=== PATIENT | male | born 1955 | race Caucasian/White ===

== ENCOUNTER → 2016-11-15 | Outpatient (CLI) | payer BC ==
[2016-11-15 07:21] LABS: Basophils # (A) 0.1 k/uL (0-0.2); Basophils % (A) 1 %; CH 30.8; CHCM 33.6; Eosinophils # (A) 0.3 k/uL (0-0.7); Eosinophils % (A) 2 %; HCT 44.7 % (39.0-53.0); HDW 2.31; Luc # (Auto) 0.31; Luc % (Auto) 3; Lymphocytes # (A) 1.8 k/uL (1.0-4.8); Lymphocytes % (A) 14 %; MCHC 33.7 g/dL (31.0-37.0); MCV 92.1 fL (80.0-100.0); Mean Platelet Volume 6.6; Monocytes # (A) 0.6 k/uL (0-1.0); Monocytes % (A) 5 %; Neutrophils # (A) 9.3 k/uL (1.3-7.7); Neutrophils % (A) 76 %; RBC 4.85 m/uL (4.30-5.90); WBC 12.4 k/uL (3.8-10.6); WBC (Perox) 12.95
[2016-11-15 07:27] LABS: Potassium 4.5 mmol/L (3.5-5.1)
== END | disposition home or self-care (01) ==
LOC: LABPAT 06:43
PROVIDERS: ATTEND Orthopaedic Surgery
DX: Z01.812 Encounter for preprocedural laboratory examination (principal)
CPT/HCPCS: 80051; 85025

== ENCOUNTER 2016-11-16 06:55 | Day surgery (SDC) | payer BC ==
[2016-11-14 08:20] VITALS: BMI 23.7
--- NOTE | 2016-11-15 11:05 | HP ---
DATE OF ADMISSION: CHIEF COMPLAINT: Left anterior knee pain. HISTORY OF PRESENT ILLNESS: The patient is a 61-year-old vargas who presents with persistent left knee anterior pain for the past several months. He had a previous injury. He did have an aspiration of his prepatellar bursitis with persistence of symptoms. He has a difficult time with kneeling and squatting. It bothers him daily. He denies fevers or chills. He is taking anti-inflammatories with some relief. PAST MEDICAL HISTORY: Negative. PAST SURGICAL HISTORY: Significant for bilateral knee arthroscopy, hernia repair and sinus surgery. CURRENT MEDICATIONS: 1. Motrin. 2. Tylenol with Codeine. He denies drug allergies. FAMILY HISTORY: Significant for cancer. SOCIAL HISTORY: Significant for 1 pack per day tobacco use and social alcohol use. A 16-point review of systems otherwise reviewed and is noncontributory. On examination, the patient is approximately 6 foot tall, 175 pounds of mesomorphic habitus. HEENT exam is nonfocal. Neck is supple. He is nontender about the lumbar spine. He has painless passive motion of the left hip. Active motion left knee -6 to 140 degrees of flexion. He does have prepatellar tenderness with some mild swelling. He has palpable bursal thickening. He is tender about the medial joint line. Collaterals are stable, Saud is negative, John's is negative. There is no warmth or erythema about the anterior aspect of the left knee. IMPRESSION: Left knee prepatellar bursitis - posttraumatic. RECOMMENDATIONS: I talked to the patient at length regarding his treatment options. At this point he is quite symptomatic and wants to proceed with surgery. We will plan to proceed with open prepatellar bursectomy of the left knee. Risks and benefits are discussed at length in layman's terms. We will likely perform that as an outpatient procedure.
[~2016-11-16 06:55] MED LIST: DEXAMETHASONE SOD PHOSPHATE 10 MG/ML 1 ML VIAL IV ONE; LACTATED RINGERS 1,000 ML IV SCH; ONDANSETRON 4 MG/2 ML VIAL IVP ONE; ceFAZolin 2 GM in SODIUM CHLORIDE 0.9% 100 ML IVPB ONE
[2016-11-16] MEDS ORDERED: LIDOCAINE 1% 20 ML VIAL (10MG/ML) FOR IV START INTRADERMA ONE (07:25)
[2016-11-16] MEDS ORDERED: LIDOCAINE 1% INJ 10MG/ML (20 ML MDV) ONE (08:04)
[2016-11-16] MEDS ORDERED: SUCCINYLCHOLINE CHLORIDE 100 MG/5 ML SYR IV ONE (08:04)
[2016-11-16] MEDS ORDERED: fentaNYL (PF) 50 MCG/ML 2 ML AMP ONE (08:04)
[2016-11-16] MEDS ORDERED: PROPOFOL 10 MG/ML 20 ML VIAL IV ONE (08:04)
[2016-11-16] MEDS ORDERED: MIDAZOLAM 2 MG/2 ML VIAL ONE (08:04)
[2016-11-16] MEDS ORDERED: ceFAZolin 1,000 MG in SODIUM CHLORIDE 0.9% 1,000 ML IRRIGATION ONE (08:30)
--- NOTE | 2016-11-16 08:48 | P.OP ---
Date of Procedure: 11/16/16 Preoperative Diagnosis: Left knee symptomatic prepatellar bursitis Postoperative Diagnosis: Same Procedure(s) Performed: Open bursectomy left knee Implants: Anesthesia: GETA Surgeon: Ramez Bhardwaj Sales Representative Graphic Art #1: Jose Padilla Estimated Blood Loss (ml): 10 Pathology: other (Bursal tissue) Condition: stable Disposition: PACU Indications for Procedure: The patient's a 61-year-old male who presents after injuring his left knee recently. He developed a symptomatic prepatellar bursitis. We try conservative measures in addition to aspiration with recurrence of his symptoms. He had no evidence of active infection. A discussion of the risks and benefits of operative intervention versus continued conservative measures was made with patient. He opted to proceed with surgery. Operative risks to include infection, recurrence, possible need for subsequent procedures was discussed. Informed consent was obtained. Operative Findings: Significant bursitis Description of Procedure: The patient was brought to the operating room, and after induction of general anesthesia the left lower extremity was prepped and draped in normal fashion. The tourniquet was inflated to 270 mmHg. A 3 cm incision was made along the anterior aspect of the left knee. The skin was incised sharply. Subcu tissues were divided sharply. There was significant bursal thickening along with fluid. The bursal tissue was widely resected. This was sent for pathology. The wound was then copiously irrigated. The subcutaneous tissues reapproximated interrupted 2-0 Vicryl sutures. The skin was reapproximated with 3-0 subcuticular Prolene suture. Steri-Strips were applied. A sterile dressing was applied. The tourniquet was deflated less than 30 minutes total tourniquet time. The patient was awoken from general anesthesia and transferred to recovery room in good condition. Blood loss was estimated at 10 mL. No complications were incurred. Sponge and needle counts were correct in the case.
[2016-11-16 08:51] VITALS: TEMP 97.8
[2016-11-16] MEDS: HYDROmorphone 1 MG/ML 1 ML SYRINGE IVP PRN ×2 (08:57→09:08)
[2016-11-16 09:17] VITALS: RESP 16
[2016-11-16] MEDS ORDERED: LACTATED RINGERS 1,000 ML IV ONE (09:41)
[2016-11-16] MEDS ORDERED: traMADol 50 MG TAB PO ONE (09:44)
[2016-11-16 09:59] VITALS: BP 148/81; PULSE 59
== END 2016-11-16 10:27 | disposition home or self-care (01) ==
LOC: OR 06:55
PROVIDERS: ATTEND Orthopaedic Surgery
DX: M70.42 Prepatellar bursitis, left knee (principal); K21.9 Gastro-esophageal reflux disease without esophagitis; F17.200 Nicotine dependence, unspecified, uncomplicated; M79.89 Other specified soft tissue disorders; Z79.1 Long term (current) use of non-steroidal anti-inflammatories (NSAID); Z79.82 Long term (current) use of aspirin; Z79.891 Long term (current) use of opiate analgesic; Z79.899 Other long term (current) drug therapy
CPT/HCPCS: 88304; 27340; J2250; J1100; J0690 ×2; J2405; J2001; J3010; J1170; J0330; J2704; 88305

== ENCOUNTER 2017-12-04 11:26 | Emergency (ER) | payer BC ==
[2017-12-04] MEDS ORDERED: SODIUM CHLORIDE 0.9% 1,000 ML IV STA (11:48)
--- NOTE | 2017-12-04 11:52 | ED ---
General Adult HPI - General Chief complaint: Shortness of Breath Stated complaint: Dyspnea Time Seen by Provider: 12/04/17 11:42 Source: patient, family, RN notes reviewed Mode of arrival: wheelchair Limitations: no limitations - History of Present Illness Initial comments: Patient is a pleasant 62-year-old male presenting to the emergency department with dyspnea. Patient has had sore throat for several months. Patient did discontinue smoking around that time. Patient states he feels discomfort and fullness in his lower throat. Patient states he feels like his shortness of breath is coming from that area. Patient may have had minimal symptoms with dyspnea previously however more so today. Patient has had difficulty swallowing. Patient states solid foods are worse than liquids. Patient did try antibiotics without improvement of symptoms. Patient is scheduled to see ENT and have scope done. Patient has not been sleeping well. - Related Data Previous Rx's Medication Instructions Recorded Azithromycin [Zithromax Z-pack] 250 mg PO DIRECTED #6 tab 12/04/17 Allergies Allergy/AdvReac Type Severity Reaction Status Date / Time Fish Containing Products Allergy Anaphylaxis Verified 12/04/17 13:11 [Fish] Review of Systems ROS Statement: Those systems with pertinent positive or pertinent negative responses have been documented in the HPI. ROS Other: All systems not noted in ROS Statement are negative. Constitutional: Denies: fever Eyes: Denies: eye pain ENT: Reports: throat pain Respiratory: Reports: dyspnea. Denies: cough Cardiovascular: Denies: chest pain Endocrine: Reports: fatigue Gastrointestinal: Reports: constipation Genitourinary: Denies: dysuria Musculoskeletal: Denies: back pain Skin: Denies: lesions Neurological: Denies: headache Past Medical History Past Medical History: GERD/Reflux, Osteoarthritis (OA) Additional Past Medical History / Comment(s): occ use of knee brace History of Any Multi-Drug Resistant Organisms: None Reported Past Surgical History: Adenoidectomy, Hernia Repair, Orthopedic Surgery, Tonsillectomy Additional Past Surgical History / Comment(s): RIGHT KNEE arthroscopy, albina foot bunionectomy and spurs, sinus surgery Past Anesthesia/Blood Transfusion Reactions: No Reported Reaction Past Psychological History: No Psychological Hx Reported Smoking Status: Current every day smoker - Past Family History Mother Family Medical History: No Reported History Father Family Medical History: Cancer General Exam Limitations: no limitations General appearance: alert, in no apparent distress Head exam: Present: atraumatic Eye exam: Present: normal appearance, PERRL, EOMI. Absent: nystagmus ENT exam: Present: normal oropharynx Neck exam: Present: normal inspection. Absent: tenderness, lymphadenopathy, thyromegaly Respiratory exam: Present: normal lung sounds bilaterally. Absent: respiratory distress, wheezes, rales, rhonchi, stridor, chest wall tenderness, accessory muscle use, decreased breath sounds Cardiovascular Exam: Present: regular rate, normal rhythm GI/Abdominal exam: Present: soft. Absent: tenderness Extremities exam: Present: normal inspection. Absent: pedal edema, calf tenderness Neurological exam: Present: alert, CN II-XII intact. Absent: motor sensory deficit Expanded Neurological exam: Present: protecting the airway Speech: Present: fluid speech Cranial nerves: EOM's Intact: Normal, Facial Sensation: Normal Sensory exam: Upper Extremity Light Touch: Normal, Lower Extremity Light Touch: Normal Motor strength exam: RUE: 5, LUE: 5, RLE: 5, LLE: 5 Eye Response: (4) open spontaneously Motor Response: (6) obeys commands Verbal Response: (5) oriented Psychiatric exam: Present: normal affect, normal mood Skin exam: Present: normal color Course Vital Signs 12/04/17 12/04/17 11:30 12:00 Temperature 97.7 F Pulse Rate 60 73 Respiratory 18 16 Rate Blood Pressure 164/88 179/73 O2 Sat by Pulse 100 98 Oximetry EKG Findings - EKG Comments: EKG Findings:: Sinus bradycardia 59. WI 150. QRS 90. QT 408. QTC 43. Normal axis. Normal QRS. No acute ST change. Medical Decision Making - Medical Decision Making Patient reevaluated and resting comfortably in bed. Patient and family updated on results and need for follow-up. Patient does have scheduled appointment Saturday for scope by ENT to assess airway. Airway is stable at this time. Patient also has follow-up appointment with primary care physician next week. There are advised to keep appointments, tried to arrange sooner possible. They are made aware of primary care physicians need to review old documentation including computed tomography scan from today and have further assessment. Patient will be covered with antibiotics for possible pneumonitis. Patient was recently on Augmentin and therefore we placed on azithromycin at this time. - Lab Data Result diagrams: 12/04/17 12:05 12/04/17 12:05 Lab Results 12/04/17 12/04/17 12/04/17 Range/Units 12:05 12:05 12:05 WBC 9.4 (3.8-10.6) k/uL RBC 4.68 (4.30-5.90) m/uL Hgb 14.0 (13.0-17.5) gm/dL Hct 42.0 (39.0-53.0) % MCV 89.7 (80.0-100.0) fL MCH 29.9 (25.0-35.0) pg MCHC 33.3 (31.0-37.0) g/dL RDW 13.2 (11.5-15.5) % Plt Count 270 (150-450) k/uL Neutrophils % 73 % Lymphocytes % 18 % Monocytes % 6 % Eosinophils % 2 % Basophils % 1 % Neutrophils # 6.8 (1.3-7.7) k/uL Lymphocytes # 1.7 (1.0-4.8) k/uL Monocytes # 0.5 (0-1.0) k/uL Eosinophils # 0.2 (0-0.7) k/uL Basophils # 0.0 (0-0.2) k/uL PT (9.0-12.0) sec INR (<1.2) APTT (22.0-30.0) sec Sodium 138 (137-145) mmol/L Potassium 4.4 (3.5-5.1) mmol/L Chloride 102 (98-107) mmol/L Carbon Dioxide 27 (22-30) mmol/L Anion Gap 9 mmol/L BUN 11 (9-20) mg/dL Creatinine 0.70 (0.66-1.25) mg/dL Est GFR (CKD-EPI)AfAm >90 (>60 ml/min/1.73 sqM) Est GFR (CKD-EPI)NonAf >90 (>60 ml/min/1.73 sqM) Glucose 92 (74-99) mg/dL Calcium 9.7 (8.4-10.2) mg/dL Magnesium 1.9 (1.6-2.3) mg/dL Total Bilirubin 0.5 (0.2-1.3) mg/dL AST 23 (17-59) U/L ALT 40 (21-72) U/L Alkaline Phosphatase 84 (38-126) U/L Total Creatine Kinase 57 (55-170) U/L CK-MB (CK-2) 1.4 (0.0-2.4) ng/mL CK-MB (CK-2) Rel Index 2.5 Troponin I <0.012 (0.000-0.034) ng/mL NT-Pro-B Natriuret Pep pg/mL Total Protein 6.7 (6.3-8.2) g/dL Albumin 4.3 (3.5-5.0) g/dL 12/04/17 12/04/17 Range/Units 12:05 12:05 WBC (3.8-10.6) k/uL RBC (4.30-5.90) m/uL Hgb (13.0-17.5) gm/dL Hct (39.0-53.0) % MCV (80.0-100.0) fL MCH (25.0-35.0) pg MCHC (31.0-37.0) g/dL RDW (11.5-15.5) % Plt Count (150-450) k/uL Neutrophils % % Lymphocytes % % Monocytes % % Eosinophils % % Basophils % % Neutrophils # (1.3-7.7) k/uL Lymphocytes # (1.0-4.8) k/uL Monocytes # (0-1.0) k/uL Eosinophils # (0-0.7) k/uL Basophils # (0-0.2) k/uL PT 9.4 (9.0-12.0) sec INR 0.9 (<1.2) APTT 22.7 (22.0-30.0) sec Sodium (137-145) mmol/L Potassium (3.5-5.1) mmol/L Chloride (98-107) mmol/L Carbon Dioxide (22-30) mmol/L Anion Gap mmol/L BUN (9-20) mg/dL Creatinine (0.66-1.25) mg/dL Est GFR (CKD-EPI)AfAm (>60 ml/min/1.73 sqM) Est GFR (CKD-EPI)NonAf (>60 ml/min/1.73 sqM) Glucose (74-99) mg/dL Calcium (8.4-10.2) mg/dL Magnesium (1.6-2.3) mg/dL Total Bilirubin (0.2-1.3) mg/dL AST (17-59) U/L ALT (21-72) U/L Alkaline Phosphatase (38-126) U/L Total Creatine Kinase (55-170) U/L CK-MB (CK-2) (0.0-2.4) ng/mL CK-MB (CK-2) Rel Index Troponin I (0.000-0.034) ng/mL NT-Pro-B Natriuret Pep 122 pg/mL Total Protein (6.3-8.2) g/dL Albumin (3.5-5.0) g/dL - Radiology Data Radiology results: report reviewed (CT scan of the chest is slightly suboptimal , no definite pulmonary embolism. 3 masses right costophrenic angle, likely cyst or lymphadenopathy. Possible interstitial pneumonitis. Hiatal hernia. Computed tomography scan of the neck shows mild tonsillar hypertrophy, mild thyromegaly, chronic ethmoid and mild chronic maxillary sinusitis.) Disposition Clinical Impression: Dyspnea Disposition: HOME SELF-CARE Condition: Stable Instructions: Dyspnea (ED) Additional Instructions: Please follow-up with primary care physician in the next day or 2 for recheck. Please also follow-up with ENT and have scope done. Return for difficulty breathing, not tolerating fluids, fevers, worsening or changing symptoms or other concerns. Prescriptions: Azithromycin [Zithromax Z-pack] 250 mg PO DIRECTED #6 tab Is patient prescribed a controlled substance at d/c from ED?: No Referrals: Sophia Bentley MD [Primary Care Provider] - 1-2 days Time of Disposition: 14:00
[2017-12-04 12:01] VITALS: RESP 16
[2017-12-04 12:20] LABS: Basophils % (A) 1 %; Eosinophils # (A) 0.2 k/uL (0-0.7); Eosinophils % (A) 2 %; Lymphocytes # (A) 1.7 k/uL (1.0-4.8); Lymphocytes % (A) 18 %; MCH 29.9 pg (25.0-35.0); MCHC 33.3 g/dL (31.0-37.0); MCV 89.7 fL (80.0-100.0); Mean Platelet Volume 7.1; Monocytes # (A) 0.5 k/uL (0-1.0); Monocytes % (A) 6 %; Neutrophils # (A) 6.8 k/uL (1.3-7.7); Neutrophils % (A) 73 %; Platelet Count 270 k/uL (150-450); RBC 4.68 m/uL (4.30-5.90); RDW 13.2 % (11.5-15.5); WBC 9.4 k/uL (3.8-10.6)
[2017-12-04 12:27] LABS: ALT 40 U/L (21-72); AST 23 U/L (17-59); Albumin 4.3 g/dL (3.5-5.0); Alkaline Phosphatase 84 U/L (38-126); Anion Gap 9 mmol/L; Blood Urea Nitrogen 11 mg/dL (9-20); Calcium 9.7 mg/dL (8.4-10.2); Carbon Dioxide 27 mmol/L (22-30); Chloride 102 mmol/L (98-107); Glucose 92 mg/dL (74-99); Magnesium 1.9 mg/dL (1.6-2.3); Potassium 4.4 mmol/L (3.5-5.1); Sodium 138 mmol/L (137-145); Total Bilirubin 0.5 mg/dL (0.2-1.3); Total Protein 6.7 g/dL (6.3-8.2)
[2017-12-04 12:35] LABS: Creatine Kinase 57 U/L (55-170)
[2017-12-04 12:46] LABS: INR 0.9 (<1.2); Partial Thromboplastin Time 22.7 sec (22.0-30.0); Prothrombin Time 9.4 sec (9.0-12.0)
[2017-12-04 12:48] LABS: Creatine Kinase MB 1.4 ng/mL (0.0-2.4); Troponin I <0.012 ng/mL (0.000-0.034)
--- NOTE | 2017-12-04 13:28 | CT ---
EXAMINATION TYPE: CT angio chest DATE OF EXAM: 12/04/2017 COMPARISON: NONE HISTORY: 62-year-old male shortness of breath, cough, Lightheaded/SOB, dyspnea TECHNIQUE: Contiguous axial scanning of the chest performed with IV Contrast, patient injected with 5 0 mL of Isovue 370. Coronal/sagittal MIP reconstructions performed. CT DLP: 714.59 mGycm Automated exposure control for dose reduction was used. FINDINGS: Heart upper limits of normal in size. Coronary vessel calcifications are present and are a marker for coronary disease. There are normal caliber with conventional arch vessel branching anatomy and mild apical scarring artemio cifications. Scattered nonenlarged mediastinal lymph nodes measuring up to 9 mm in the paratracheal region. No tho racic lymphadenopathy by CT size criteria. However, there are 3 low-density masses in the right cardi ophrenic angle measuring 2.1, 2.8, at 2.7 cm. These are ovoid and circumscribed. Slightly suboptimal opacification of the pulmonary arterial system without any definite evidence for pulmonary embolus. Mild bronchial wall thickening. Mild upper lung paraseptal emphysema. Some subpleural microcystic [place] nges are present especially in the posterior lower lobes along with associated bibasilar groundglass. No pleural effusion or shaka consolidation. Small hiatal hernia. Visualized upper abdomen shows no gross abnormality. Bones: Multilevel degenerative disc disease mid to lower thoracic spine with scattered vacuum phenome non and endplate Schmorl's nodes. IMPRESSION: 1. SLIGHTLY SUBOPTIMAL CONTRAST BOLUS. NO DEFINITE PULMONARY EMBOLUS. 2. THREE LOW-DENSITY MASSES AT THE RIGHT CARDIOPHRENIC ANGLE MEASURING UP TO 2.8 CM. LYMPHADENOPATHY AND PERICARDIAL CYSTS ARE IN THE DIFFERENTIAL WITH THE LATTER BEING FAVORED. CONSIDER CONTRAST ENHANC ED MRI OF THE CHEST TO FURTHER EVALUATE VERSUS 3 - 6 MONTH FOLLOW-UP CT TO REASSESS. 3. MILD PARASEPTAL EMPHYSEMA BUT WITH BIBASILAR SUBPLEURAL MICROCYSTIC CHANGE AND ASSOCIATED GROUNDGL ASS. CORRELATE FOR POSSIBLE INTERSTITIAL PNEUMONITIS SUCH DIP OR NSIP. 4. SMALL HIATAL HERNIA.
--- NOTE | 2017-12-04 13:34 | CT ---
EXAMINATION TYPE: CT soft tissue neck w con DATE OF EXAM: 12/04/2017 COMPARISON: NONE HISTORY: 62-year-old male, pain Lightheaded/SOB, dyspnea, smoking history, trouble clearing throat, c ough. TECHNIQUE: Contiguous axial scanning of the soft tissues of the neck performed with IV Contrast, manfred ent injected with 50 mL of Isovue 370. Coronal/sagittal reconstructions performed. CT DLP: 608.02 mGycm Automated exposure control for dose reduction was used. FINDINGS: Visualized intracranial structures, orbits and globes, and mastoid air cells are clear. Minor mucosal thickening within the ethmoid air cells and some lobulated mucosal thickening inferior maxillary sin uses. Nasopharynx is clear. There is bilateral tubal and lingual tonsillar hypertrophy narrowing the oropharyngeal airway. Mild l ingual tonsillar hypertrophy. Prevertebral soft tissues and epiglottis appear within normal limits. The glottic and subglottic structures as well as the tracheal column appear clear. While the lobes of the thyroid gland appears enlarged measuring up to 6.3 cm, there are no discrete l esions. Submandibular glands appear satisfactory. Mild atrophy of the parotid glands. No cervical lymphadenopathy. Mild atherosclerotic calcifications within the proximal right internal carotid artery without signifi cant stenosis. No osseous destructive process. IMPRESSION: 1. MILD TUBAL AND PALATINE TONSILLAR HYPERTROPHY WELL MILD HYPERTROPHY OF THE LINGUAL TONSILS. 2. MILD THYROMEGALY. 3. MODERATE CHRONIC ETHMOID AND MILD CHRONIC MAXILLARY SINUSITIS.
[2017-12-04 14:13] VITALS: BP 161/82; PULSE 74; TEMP 98
== END 2017-12-04 14:11 | disposition home or self-care (01) ==
LOC: EC 11:26
DX: R06.00 Dyspnea, unspecified (principal); R13.10 Dysphagia, unspecified; J02.9 Acute pharyngitis, unspecified; F17.200 Nicotine dependence, unspecified, uncomplicated; Z91.013 Allergy to seafood
CPT/HCPCS: 36415; 93005; 83880; 80053; 82550; 82553; 83735; 84484; 85025; 85610; 85730; 70491; 71275; 99285; Q9967

== ENCOUNTER 2018-09-30 11:29 | Day surgery (SDC) | payer BC ==
[2018-09-29 09:08] VITALS: BMI 25.0
[~2018-09-30 11:29] MED LIST changes: -DEXAMETHASONE SOD PHOSPHATE 10 MG/ML 1 ML VIAL IV ONE; -ONDANSETRON 4 MG/2 ML VIAL IVP ONE; -ceFAZolin 2 GM in SODIUM CHLORIDE 0.9% 100 ML IVPB ONE
[2018-09-30] MEDS ORDERED: LACTATED RINGERS 1,000 ML IV ONE ×2 (11:58)
[2018-09-30 12:08] VITALS: TEMP 97.2
[2018-09-30] MEDS ORDERED: PROPOFOL 10 MG/ML 20 ML VIAL IV ONE (13:06)
[2018-09-30] MEDS ORDERED: LIDOCAINE 1% INJ 10MG/ML (20 ML MDV) ONE (13:06)
[2018-09-30 13:44] VITALS: RESP 18
--- NOTE | 2018-09-30 13:55 | P.PCN ---
Date of Procedure: 09/30/18 Procedure(s) Performed: Procedure: 1. Esophagogastroduodenoscopy and biopsy. 2. Colonoscopy and biopsy. Preoperative diagnosis: Gastroesophageal reflux disease and chronic reflux symptoms. Postoperative diagnosis: 1. Sliding hiatal hernia with no obvious esophagitis or complicated reflux disease. 2. Mild antral gastritis. 3. Sigmoid diverticulosis with no evidence of acute diverticulitis or strictures. 4. Colon and terminal ileum, otherwise, within normal limits. 4. Biopsies obtained from the duodenum, antrum, esophagus, terminal ileum and right colon. Preparation: HalfLytely prep. Sedation: Was provided by anesthesia. Brief clinical history: The patient is a 62-year-old male who was evaluated in the office earlier this month for diarrhea of one-year duration. He reported history of COPD and reflux and abdominal cramps with urgent bowel movements. He has been taking omeprazole for the last year. No dietary or medication triggers. Procedure: With the patient on his left lateral decubitus position and after informed consent and adequate sedation, I passed the Olympus-GIF H 190 video upper endoscope through the cricopharyngeus down the esophagus. GE junction was around 38 cm from the incisors and there was a small sliding hiatal hernia but no obvious esophagitis or complicated reflux disease. The endoscope was then passed into the stomach which was insufflated with air and inspected in detail including the retroflex view in the cardia. There was some mottling and erythe ma in the antrum but no ulcers or erosions. Pyloric channel, duodenal bulb, post bulbar area and descending duodenum appeared within normal limits. I obtained biopsies from the duodenum, antrum and esophagus then the endoscope was withdrawn and I proceeded to perform the colonoscopy. Perianal area did not show any fissures or fistulas. There were no masses felt on digital rectal examination. The Olympus CFH 190L video colonoscope was then inserted in the rectum in the usual fashion and advanced to the cecum. I intubated the ileocecal valve and examined the terminal ileum. Terminal ileum and colon appeared healthy. I obtained biopsies from the right colon and terminal ileum. Multiple diverticular orifices were seen scattered in the sigmoid with no evidence of acute diverticulitis or strictures. I retroflexed the endoscope in the rectum before the endoscope was withdrawn. The patient tolerated the procedure well. Plan: The patient was reassured. Will await biopsy results and make further plans. I will keep you updated on his progress.
[2018-09-30 14:16] VITALS: BP 150/92; PULSE 68
== END 2018-09-30 14:26 | disposition home or self-care (01) ==
LOC: ORWHC2ENDO 11:29
DX: K44.9 Diaphragmatic hernia without obstruction or gangrene (principal); K21.9 Gastro-esophageal reflux disease without esophagitis; K29.70 Gastritis, unspecified, without bleeding; M17.0 Bilateral primary osteoarthritis of knee; K57.30 Diverticulosis of large intestine without perforation or abscess without bleeding; J44.9 Chronic obstructive pulmonary disease, unspecified; Z91.018 Allergy to other foods; Z87.891 Personal history of nicotine dependence; Z79.51 Long term (current) use of inhaled steroids; Z79.899 Other long term (current) drug therapy; Z98.890 Other specified postprocedural states
CPT/HCPCS: 88305; 45380; 43239; J2001; J2704

== ENCOUNTER 2021-07-26 15:29 | Observation (INO) | payer BC, MEDICARE ==
--- NOTE | 2021-07-26 17:05 | XR ---
EXAMINATION TYPE: XR chest 2V DATE OF EXAM: 07/26/2021 4:45 PM COMPARISON:02/06/2016 TECHNIQUE: Frontal and lateral views of the chest. CLINICAL INDICATION:Male, 65 years old with history of shortness of breath ; FINDINGS: Lungs/Pleura: Low lung volumes are present. There is no evidence of pleural effusion, focal consolida tion, or pneumothorax. Pulmonary vascularity: Unremarkable. Heart/mediastinum: Cardiomediastinal silhouette is unremarkable. Musculoskeletal: No acute osseous pathology. IMPRESSION: Low lung volumes without acute cardiopulmonary disease/process.
[2021-07-26 18:32] LABS: Basophils # (A) 0.1 k/uL (0-0.2); Basophils % (A) 1 %; Eosinophils # (A) 0.1 k/uL (0-0.7); Eosinophils % (A) 2 %; HCT 38.3 % (39.0-53.0); HGB 12.9 gm/dL (13.0-17.5); Lymphocytes # (A) 1.5 k/uL (1.0-4.8); Lymphocytes % (A) 18 %; MCH 32.4 pg (25.0-35.0); MCHC 33.8 g/dL (31.0-37.0); MCV 95.9 fL (80.0-100.0); Mean Platelet Volume 7.2; Monocytes # (A) 0.6 k/uL (0-1.0); Monocytes % (A) 7 %; Neutrophils # (A) 5.6 k/uL (1.3-7.7); Neutrophils % (A) 69 %; Platelet Count 277 k/uL (150-450); RDW 12.8 % (11.5-15.5); WBC 8.1 k/uL (3.8-10.6)
[2021-07-26 18:44] LABS: Albumin 4.3 g/dL (3.5-5.0); Calcium 10.2 mg/dL (8.4-10.2); Total Bilirubin 0.4 mg/dL (0.2-1.3)
[2021-07-26 18:45] LABS: INR 0.9 (<1.2); Partial Thromboplastin Time 22.4 sec (22.0-30.0); Prothrombin Time 9.7 sec (9.0-12.0)
[2021-07-26 18:50] LABS: Potassium 6.1 mmol/L (3.5-5.1)
[2021-07-26 20:30] LABS: Potassium 4.6 mmol/L (3.5-5.1)
[2021-07-26] MEDS ORDERED: IPRATROPIUM-ALBUTEROL 3 ML NEB INHALATION STA (20:55)
[2021-07-26] MEDS ORDERED: methylPREDNISolone SOD SUCCI 125 MG/2 ML VIAL IV STA (20:55)
[2021-07-26] MEDS: SODIUM CHLORIDE 0.9% 1,000 ML IV SCH (21:36)
--- NOTE | 2021-07-26 22:04 | ED ---
SOB HPI - General Chief Complaint: Shortness of Breath Stated Complaint: low o2 Time Seen by Provider: 07/26/21 18:56 Source: patient Mode of arrival: ambulatory Limitations: no limitations - History of Present Illness Initial Comments: 65-year-old male with past medical history of COPD presents emergency Department with shortness of breath. He did see his primary care in office one week ago. Chest x-ray was performed. The diagnosed with pneumonia. He was placed on Lasix, potassium and doxycycline. He has been taking the medications as directed and went for his follow-up today. They did an ambulatory pulse ox test. He did fall to 83% without oxygen. They placed him on 2 L and ambulated him for which she fell to 85% when ambulatory. Because of his hypoxia they recommended going to the emergency department. He does not use oxygen at home. Denies any chest pain. Denies history of heart failure. No fevers, chills or cough. No lower extremity swelling. No other alleviating, precipitating or modifying factors - Related Data Home Medications Medication Instructions Recorded Confirmed Albuterol Sulfate [Proair Hfa] 2 puff INHALATION RT-Q6H PRN 09/29/18 07/26/21 Omeprazole [PriLOSEC] 20 mg PO DAILY 09/29/18 07/26/21 Amitriptyline HCl [Elavil] 25 mg PO HS 07/26/21 07/26/21 Dicyclomine HCl 10 mg PO TID 07/26/21 07/26/21 Losartan [Cozaar] 50 mg PO DAILY 07/26/21 07/26/21 Metoprolol Succinate (ER) [Toprol 50 mg PO BID 07/26/21 07/26/21 XL] Rosuvastatin [Crestor] 20 mg PO Q48H 07/26/21 07/26/21 Tiotropium 2.5 Mcg/Puff [Spiriva 1 puff INHALATION RT-DAILY 07/26/21 07/26/21 Respimat 2.5 Mcg] buPROPion SR [Wellbutrin SR] 150 mg PO BID 07/26/21 07/26/21 Previous Rx's Medication Instructions Recorded predniSONE 10 mg PO DIRECTED #30 tab 07/29/21 Allergies Allergy/AdvReac Type Severity Reaction Status Date / Time Fish Containing Products Allergy Anaphylaxis Verified 07/26/21 16:27 [Fish] budesonide [From Symbicort] AdvReac Sores in Verified 07/26/21 20:55 mouth formoterol [From Symbicort] AdvReac Sores in Verified 07/26/21 20:55 mouth Review of Systems ROS Statement: Those systems with pertinent positive or pertinent negative responses have been documented in the HPI. ROS Other: All systems not noted in ROS Statement are negative. Past Medical History Past Medical History: COPD, GERD/Reflux, Osteoarthritis (OA) Additional Past Medical History / Comment(s): change in bowel habits, frequent loose stools History of Any Multi-Drug Resistant Organisms: None Reported Past Surgical History: Adenoidectomy, Hernia Repair, Orthopedic Surgery, Tonsillectomy Additional Past Surgical History / Comment(s): RIGHT KNEE arthroscopy, albina foot bunionectomy and spurs, sinus surgery Past Anesthesia/Blood Transfusion Reactions: No Reported Reaction Past Psychological History: Anxiety Smoking Status: Former smoker Past Alcohol Use History: Daily Past Drug Use History: None Reported - Past Family History Mother Family Medical History: No Reported History Father Family Medical History: Cancer General Exam Limitations: no limitations General appearance: alert, in no apparent distress Head exam: Present: atraumatic, normocephalic, normal inspection Eye exam: Present: normal appearance, PERRL, EOMI. Absent: scleral icterus, conjunctival injection, periorbital swelling ENT exam: Present: normal exam, mucous membranes moist Neck exam: Present: normal inspection. Absent: tenderness, meningismus, lymphadenopathy Respiratory exam: Present: normal lung sounds bilaterally, decreased breath sounds. Absent: respiratory distress, wheezes, rales, rhonchi, stridor Cardiovascular Exam: Present: regular rate, normal rhythm, normal heart sounds. Absent: systolic murmur, diastolic murmur, rubs, gallop, clicks GI/Abdominal exam: Present: soft, normal bowel sounds. Absent: distended, tenderness, guarding, rebound, rigid Extremities exam: Present: normal inspection, full ROM, normal capillary refill. Absent: tenderness, pedal edema, joint swelling, calf tenderness Back exam: Present: normal inspection Neurological exam: Present: alert, oriented X3, CN II-XII intact Psychiatric exam: Present: normal affect, normal mood Skin exam: Present: warm, dry, intact, normal color. Absent: rash Course Vital Signs 07/26/21 07/26/21 07/26/21 16:22 21:30 21:36 Temperature 98.6 F Pulse Rate 72 70 73 Respiratory 18 Rate Blood Pressure 105/73 O2 Sat by Pulse 97 Oximetry 07/27/21 00:30 Temperature Pulse Rate 79 Respiratory 16 Rate Blood Pressure 146/92 O2 Sat by Pulse 94 L Oximetry Procedures - [place] Protocol (Time Out) Nurse: Osvaldo Haji Medical Decision Making - Medical Decision Making Upon arrival patient is placed into room 2. A thorough history and physical exam was performed. IV access established laboratory says her conducted. Patient does have a sodium of 123 and potassium 6.1. These are both repeated. Potassium does return and is normal at 4.6 however his sodium is still low at 122. Because of this he is started on fluid hydration. BNP is 326. Covid is not detected. Chest x-ray is performed which demonstrates low lung volumes with no acute cardio process. Patient given a DuoNeb breathing treatment and 125 of Solu-Medrol. As the patient was hypoxic I did recommend admission for pulmonology consultation for which she did agree to. Spoke with Dr. Eric who agreed to admit the patient. Patient remained in stable condition awaiting a bed on the floor - Lab Data Result diagrams: 07/27/21 05:30 07/29/21 07:57 Lab Results 07/26/21 07/26/21 07/26/21 Range/Units 18:03 18:03 18:03 WBC (3.8-10.6) k/uL RBC (4.30-5.90) m/uL Hgb (13.0-17.5) gm/dL Hct (39.0-53.0) % MCV (80.0-100.0) fL MCH (25.0-35.0) pg MCHC (31.0-37.0) g/dL RDW (11.5-15.5) % Plt Count (150-450) k/uL MPV Neutrophils % % Lymphocytes % % Monocytes % % Eosinophils % % Basophils % % Neutrophils # (1.3-7.7) k/uL Lymphocytes # (1.0-4.8) k/uL Monocytes # (0-1.0) k/uL Eosinophils # (0-0.7) k/uL Basophils # (0-0.2) k/uL PT 9.7 (9.0-12.0) sec INR 0.9 (<1.2) APTT 22.4 (22.0-30.0) sec Sodium 123 L (137-145) mmol/L Potassium 6.1 H* (3.5-5.1) mmol/L Chloride 89 L (98-107) mmol/L Carbon Dioxide 27 (22-30) mmol/L Anion Gap 7 mmol/L BUN 18 (9-20) mg/dL Creatinine 1.17 (0.66-1.25) mg/dL Est GFR (CKD-EPI)AfAm 76 (>60 ml/min/1.73 sqM) Est GFR (CKD-EPI)NonAf 66 (>60 ml/min/1.73 sqM) Glucose 99 (74-99) mg/dL Plasma Lactic Acid Fadi 1.5 (0.7-2.0) mmol/L Calcium 10.2 (8.4-10.2) mg/dL Total Bilirubin 0.4 (0.2-1.3) mg/dL AST 32 (17-59) U/L ALT 36 (4-49) U/L Alkaline Phosphatase 96 (38-126) U/L Troponin I (0.000-0.034) ng/mL NT-Pro-B Natriuret Pep pg/mL Total Protein 7.0 (6.3-8.2) g/dL Albumin 4.3 (3.5-5.0) g/dL Coronavirus (PCR) (Not Detectd) 07/26/21 07/26/21 07/26/21 Range/Units 18:03 18:03 18:07 WBC 8.1 (3.8-10.6) k/uL RBC 4.00 L (4.30-5.90) m/uL Hgb 12.9 L (13.0-17.5) gm/dL Hct 38.3 L (39.0-53.0) % MCV 95.9 (80.0-100.0) fL MCH 32.4 (25.0-35.0) pg MCHC 33.8 (31.0-37.0) g/dL RDW 12.8 (11.5-15.5) % Plt Count 277 (150-450) k/uL MPV 7.2 Neutrophils % 69 % Lymphocytes % 18 % Monocytes % 7 % Eosinophils % 2 % Basophils % 1 % Neutrophils # 5.6 (1.3-7.7) k/uL Lymphocytes # 1.5 (1.0-4.8) k/uL Monocytes # 0.6 (0-1.0) k/uL Eosinophils # 0.1 (0-0.7) k/uL Basophils # 0.1 (0-0.2) k/uL PT (9.0-12.0) sec INR (<1.2) APTT (22.0-30.0) sec Sodium (137-145) mmol/L Potassium (3.5-5.1) mmol/L Chloride (98-107) mmol/L Carbon Dioxide (22-30) mmol/L Anion Gap mmol/L BUN (9-20) mg/dL Creatinine (0.66-1.25) mg/dL Est GFR (CKD-EPI)AfAm (>60 ml/min/1.73 sqM) Est GFR (CKD-EPI)NonAf (>60 ml/min/1.73 sqM) Glucose (74-99) mg/dL Plasma Lactic Acid Fadi (0.7-2.0) mmol/L Calcium (8.4-10.2) mg/dL Total Bilirubin (0.2-1.3) mg/dL AST (17-59) U/L ALT (4-49) U/L Alkaline Phosphatase (38-126) U/L Troponin I <0.012 (0.000-0.034) ng/mL NT-Pro-B Natriuret Pep 326 pg/mL Total Protein (6.3-8.2) g/dL Albumin (3.5-5.0) g/dL Coronavirus (PCR) (Not Detectd) 07/26/21 07/26/21 Range/Units 20:06 20:06 WBC (3.8-10.6) k/uL RBC (4.30-5.90) m/uL Hgb (13.0-17.5) gm/dL Hct (39.0-53.0) % MCV (80.0-100.0) fL MCH (25.0-35.0) pg MCHC (31.0-37.0) g/dL RDW (11.5-15.5) % Plt Count (150-450) k/uL MPV Neutrophils % % Lymphocytes % % Monocytes % % Eosinophils % % Basophils % % Neutrophils # (1.3-7.7) k/uL Lymphocytes # (1.0-4.8) k/uL Monocytes # (0-1.0) k/uL Eosinophils # (0-0.7) k/uL Basophils # (0-0.2) k/uL PT (9.0-12.0) sec INR (<1.2) APTT (22.0-30.0) sec Sodium 122 L (137-145) mmol/L Potassium 4.6 (3.5-5.1) mmol/L Chloride (98-107) mmol/L Carbon Dioxide (22-30) mmol/L Anion Gap mmol/L BUN (9-20) mg/dL Creatinine (0.66-1.25) mg/dL Est GFR (CKD-EPI)AfAm (>60 ml/min/1.73 sqM) Est GFR (CKD-EPI)NonAf (>60 ml/min/1.73 sqM) Glucose (74-99) mg/dL Plasma Lactic Acid Fadi (0.7-2.0) mmol/L Calcium (8.4-10.2) mg/dL Total Bilirubin (0.2-1.3) mg/dL AST (17-59) U/L ALT (4-49) U/L Alkaline Phosphatase (38-126) U/L Troponin I (0.000-0.034) ng/mL NT-Pro-B Natriuret Pep pg/mL Total Protein (6.3-8.2) g/dL Albumin (3.5-5.0) g/dL Coronavirus (PCR) Not Detected (Not Detectd) - EKG Data EKG Comments: EKG demonstrates a sinus rhythm with a ventricular rate of 64. PA interval 178. QRS 93. CT of 386. No acute ST segment elevations or depressions concerning for ischemic changes Disposition Clinical Impression: Hypoxia, COPD exacerbation, Hyponatremia Disposition: ADMITTED IP TO THIS [facility] Condition: Stable Is patient prescribed a controlled substance at d/c from ED?: No Decision to Admit Reason: Admit from EC Decision Date: 07/26/21 Decision Time: 22:14
[2021-07-26] MEDS ORDERED: NALOXONE 0.4 MG/ML 1 ML VIAL IV PRN (22:14)
[2021-07-26] MEDS ORDERED: IPRATROPIUM-ALBUTEROL 3 ML NEB INHALATION PRN (22:16)
[2021-07-27] MEDS: methylPREDNISolone SOD SUCCI 40 MG/ML 1 ML VIAL IV SCH ×4 (01:24→23:36)
[2021-07-27] MEDS: SODIUM CHLORIDE 0.9% 1,000 ML IV SCH ×4 (03:34→23:39)
[2021-07-27 06:13] LABS: Basophils % (A) 0 %; Eosinophils % (A) 0 %; HCT 40.7 % (39.0-53.0); HGB 13.2 gm/dL (13.0-17.5); Lymphocytes # (A) 0.4 k/uL (1.0-4.8); Lymphocytes % (A) 7 %; MCH 31.5 pg (25.0-35.0); MCHC 32.6 g/dL (31.0-37.0); MCV 96.6 fL (80.0-100.0); Monocytes # (A) 0.1 k/uL (0-1.0); Monocytes % (A) 2 %; Neutrophils % (A) 90 %; Platelet Count 258 k/uL (150-450); RBC 4.21 m/uL (4.30-5.90); RDW 13.4 % (11.5-15.5); WBC 5.5 k/uL (3.8-10.6)
[2021-07-27 06:25] LABS: African American GFR (CKD) >90 (>60 ml/min/1.73 sqM); Anion Gap 5 mmol/L; Blood Urea Nitrogen 14 mg/dL (9-20); Calcium 9.7 mg/dL (8.4-10.2); Carbon Dioxide 25 mmol/L (22-30); Chloride 95 mmol/L (98-107); Glucose 169 mg/dL (74-99); Non-African American GFR(CKD) >90 (>60 ml/min/1.73 sqM); Potassium 4.6 mmol/L (3.5-5.1); Sodium 125 mmol/L (137-145)
[2021-07-27] MEDS: METOPROLOL SUCCINATE (ER) 50 MG TAB.ER.24H PO SCH ×2 (07:30→20:51)
[2021-07-27] MEDS: LOSARTAN 50 MG TAB PO SCH (07:30)
[2021-07-27] MEDS: buPROPion SR 150 MG TABLET.ER PO SCH ×2 (08:13→20:51)
--- NOTE | 2021-07-27 10:01 | P.CNPUL ---
History of Present Illness Consult date: 07/27/21 Requesting physician: Bashir Foutnain Reason for consult: dyspnea, COPD, hypoxemia Chief complaint: Shortness of breath History of present illness: This is a pleasant 65-year-old male patient who follows with Dr. Bentley as his primary care provider. He has a history of hyperlipidemia, hypertension, gastroesophageal reflux disease, chronic obstructive pulmonary disease maintained on Spiriva and pro-air in the outpatient setting. He had been seen in our office and his FEV1 value was found to be 63% of predicted. The patient has a 45 year 1-1/2 pack per day smoking history and states he quit about 4 weeks ago. He also was having issues with swelling of the lower extremities and was recently placed on Lasix 40 mg in the a.m. 20 g in the p.m. He was also on potassium supplements. He states he has lost about 4 pounds. He was at his primary care provider's office yesterday and his O2 sats were found to be in the 80s during a 6 minute walk. He was referred here for further evaluation. Chest x-ray reveals evidence of COPD but no acute cardiopulmonary process. White count 5.5. Hemoglobin 13.2. Sodium 125. Initial potassium 6.1 currently 4.6. BUN 14. Creatinine 0.81. Glucose 169. Troponin negative 1. ProBNP 326. AST 32. ALT 36. Colmenares virus by PCR not detected. He is seen today in consultation on the regular medical floor. He is currently sitting up in bed. Awake and alert in no acute distress. He denies any worsening shortness of breath, cough or congestion. No fever or chills. He does have a mild end expiratory wheeze. Diminished. No significant peripheral edema. No dizziness or lightheadedness. He is 98% O2 saturation on 2 L/m per nasal cannula. He's been afebrile. Hemodynamically stable. He was initiated on IV Solu-Medrol, DuoNeb inhalations, 0.9% normal saline at 130 ML's per hour. Review of Systems REVIEW OF SYSTEMS: CONSTITUTIONAL: Denies any recent significant weight loss or weight gain. EYES: Denies change in vision. EARS, NOSE, MOUTH, THROAT: Denies headaches, denies sore throat. CARDIOVASCULAR: Denies chest pain, palpitations or syncopal episodes. RESPIRATORY: Positive for shortness of breath on exertion, no cough, congestion or hemoptysis. GASTROINTESTINAL: Denies change in appetite, denies abdominal pain GENITOURINARY: Denies hematuria, denies infections. MUSKULOSKELETAL: Denies pain, denies swelling. INTEGUMENTARY: Denies rash, denies eczema. NEUROLOGICAL: Denies recent memory loss, no recent seizure activity. PSYCHIATRIC: Denies anxiety, denies depression. HEMATOLOGIC/LYMPHATIC: Denies anemia, denies enlarged lymph nodes. Past Medical History Past Medical History: COPD, GERD/Reflux, Osteoarthritis (OA) Additional Past Medical History / Comment(s): change in bowel habits, frequent loose stools History of Any Multi-Drug Resistant Organisms: None Reported Past Surgical History: Adenoidectomy, Hernia Repair, Orthopedic Surgery, Tonsillectomy Additional Past Surgical History / Comment(s): RIGHT KNEE arthroscopy, albina foot bunionectomy and spurs, sinus surgery Past Anesthesia/Blood Transfusion Reactions: No Reported Reaction Past Psychological History: Anxiety Smoking Status: Former smoker Past Alcohol Use History: Daily Past Drug Use History: None Reported - Past Family History Mother Family Medical History: No Reported History Father Family Medical History: Cancer Medications and Allergies Home Medications Medication Instructions Recorded Confirmed Type Albuterol Sulfate [Proair Hfa] 2 puff INHALATION RT-Q6H PRN 09/29/18 07/26/21 History Omeprazole [PriLOSEC] 20 mg PO DAILY 09/29/18 07/26/21 History Amitriptyline HCl [Elavil] 25 mg PO HS 07/26/21 07/26/21 History Dicyclomine HCl 10 mg PO TID 07/26/21 07/26/21 History Furosemide [Lasix] 20 mg PO DAILY 07/26/21 07/26/21 History Losartan [Cozaar] 50 mg PO DAILY 07/26/21 07/26/21 History Metoprolol Succinate (ER) [Toprol 50 mg PO BID 07/26/21 07/26/21 History Xl] Potassium Chloride [Klor-Con M20] 10 meq PO DAILY 07/26/21 07/26/21 History Rosuvastatin [Crestor] 20 mg PO Q48H 07/26/21 07/26/21 History Tiotropium 2.5 Mcg/Puff [Spiriva 1 puff INHALATION RT-DAILY 07/26/21 07/26/21 History Respimat 2.5 Mcg] buPROPion SR [Wellbutrin SR] 150 mg PO BID 07/26/21 07/26/21 History Allergies Allergy/AdvReac Type Severity Reaction Status Date / Time Fish Containing Products Allergy Anaphylaxis Verified 07/26/21 16:27 [Fish] budesonide [From Symbicort] AdvReac Sores in Verified 07/26/21 20:55 mouth formoterol [From Symbicort] AdvReac Sores in Verified 07/26/21 20:55 mouth Physical Exam Vitals: Vital Signs Temp Pulse Pulse Resp BP BP Pulse Ox 07/27/21 08:30 104 H 18 98 07/27/21 07:52 98.0 F 111 H 18 152/95 99 07/27/21 01:28 97.5 F L 77 20 147/90 98 07/27/21 00:56 97.5 F L 74 20 164/95 98 07/27/21 00:30 79 16 146/92 94 L 07/26/21 21:36 73 07/26/21 21:30 70 07/26/21 16:22 98.6 F 72 18 105/73 97 Intake and Output 07/26/21 07/27/21 07/27/21 22:59 06:59 14:59 Other: # Voids 1 Weight 82.554 kg 82.554 kg GENERAL EXAM: Alert, very pleasant 65-year-old male patient, on 2 L nasal cannula, comfortable in no apparent distress. HEAD: Normocephalic. EYES: Normal reaction of pupils, equal size. NOSE: Clear with pink turbinates. THROAT: No erythema or exudates. NECK: No masses, no JVD. CHEST: No chest wall deformity. LUNGS: Equal air entry with faint end expiratory wheeze. Diminished CVS: S1 and S2 normal with no audible murmur, regular rhythm. ABDOMEN: No hepatosplenomegaly, normal bowel sounds, no guarding or rigidity. SPINE: No scoliosis or deformity SKIN: No rashes CENTRAL NERVOUS SYSTEM: No focal deficits, tone is normal in all 4 extremities. EXTREMITIES: There is no peripheral edema. No clubbing, no cyanosis. Peripheral pulses are intact. Results - Laboratory Findings CBC and BMP: 07/27/21 05:30 07/27/21 05:30 PT/INR, D-dimer PT 9.7 sec (9.0-12.0) 07/26/21 18:03 INR 0.9 (<1.2) 07/26/21 18:03 Abnormal lab findings: Abnormal Labs 07/26/21 07/26/21 07/26/21 18:03 18:07 20:06 RBC 4.00 L Hgb 12.9 L Hct 38.3 L Lymphocytes # Sodium 123 L 122 L Potassium 6.1 H* Chloride 89 L Glucose 07/27/21 07/27/21 05:30 05:30 RBC 4.21 L Hgb Hct Lymphocytes # 0.4 L Sodium 125 L Potassium Chloride 95 L Glucose 169 H - Diagnostic Findings Chest x-ray: image reviewed (No acute pulmonary process) Assessment and Plan Assessment: 1 Acute hypoxemic respiratory failure secondary to an acute exacerbation of chronic obstructive pulmonary disease 2 Chronic obstructive pulmonary disease with an FEV1 value 63% of predicted, maintained on Spiriva and pro-air 3 Chronic tobacco dependence at one and half packs per day 45 years, quit 4 weeks ago 4 Hypovolemic hyponatremia secondary to diuretics 5 Hyperkalemia secondary to potassium supplements 6 Hyperlipidemia 7 Hypertension 8 Gastroesophageal reflux disease 9 History of anxiety 10 History of daily alcohol use Plan: The patient was seen and evaluated Chest x-ray and labs reviewed Continue hydration Adjust diuretics and potassium supplements if needed accordingly Continue DuoNeb inhalations and steroids Intolerant of inhaled corticosteroids Evaluate for probable home oxygen Educated regarding the importance of complete smoking cessation Okay for discharge once cleared by medicine Follow-up in our office in 1-2 weeks' I, the cosigning physician, performed a history & physical examination of the patient. Lungs sounds with faint end expiratory wheeze. Maintaining good O2 saturations in the 90s on 2 L/m per nasal cannula. I discussed the assessment and plan of care with my nurse practitioner, Gauri Puckett. I attest to the above consultation as dictated by her. Time with Patient: Greater than 30
[2021-07-27] MEDS: AMITRIPTYLINE HCL 25 MG TAB PO SCH (20:52)
[2021-07-27] MEDS: ACETAMINOPHEN TAB 325 MG TAB PO PRN (20:55)
--- NOTE | 2021-07-27 22:37 | P.HPIM ---
History of Present Illness H&P Date: 07/27/21 Chief Complaint: shortness of breath Nael Werner is a 65 yo M with PMH of COPD, tobacco abuse, HTN, HLD who presented to the ED on the recommendation of his PCP with worsening shortness of breath. He states he had been wheeizng more and having difficulty catching is breath over the past few months he also notes recent leg swelling. Pt was started on lasix and states in the past week he lost 4 lbs but he continues to be short of breath and now is getting dizzy and weak. On presentation WBC 8.1, sodium 123, K 6.1, trop negative, BNP 300, procalcitonin negative. Review of Systems All systems: negative Constitutional: Reports malaise, Reports weakness, Denies chills, Denies fever Eyes: denies blurred vision, denies pain Ears, nose, mouth and throat: Denies headache, Denies sore throat Cardiovascular: Denies chest pain, Denies shortness of breath Respiratory: Reports dyspnea, Reports sleep apnea, Denies cough Gastrointestinal: Denies abdominal pain, Denies diarrhea, Denies nausea, Denies vomiting Musculoskeletal: Denies myalgias Integumentary: Denies pruritus, Denies rash Neurological: Denies numbness, Denies weakness Psychiatric: Denies anxiety, Denies depression Endocrine: Denies fatigue, Denies weight change Past Medical History Past Medical History: COPD, GERD/Reflux, Osteoarthritis (OA) Additional Past Medical History / Comment(s): change in bowel habits, frequent loose stools History of Any Multi-Drug Resistant Organisms: None Reported Past Surgical History: Adenoidectomy, Hernia Repair, Orthopedic Surgery, Tonsillectomy Additional Past Surgical History / Comment(s): RIGHT KNEE arthroscopy, albina foot bunionectomy and spurs, sinus surgery Past Anesthesia/Blood Transfusion Reactions: No Reported Reaction Past Psychological History: Anxiety Smoking Status: Former smoker Past Alcohol Use History: Daily Past Drug Use History: None Reported - Past Family History Mother Family Medical History: No Reported History Father Family Medical History: Cancer Medications and Allergies Home Medications Medication Instructions Recorded Confirmed Type Albuterol Sulfate [Proair Hfa] 2 puff INHALATION RT-Q6H PRN 09/29/18 07/26/21 History Omeprazole [PriLOSEC] 20 mg PO DAILY 09/29/18 07/26/21 History Amitriptyline HCl [Elavil] 25 mg PO HS 07/26/21 07/26/21 History Dicyclomine HCl 10 mg PO TID 07/26/21 07/26/21 History Furosemide [Lasix] 20 mg PO DAILY 07/26/21 07/26/21 History Losartan [Cozaar] 50 mg PO DAILY 07/26/21 07/26/21 History Metoprolol Succinate (ER) [Toprol 50 mg PO BID 07/26/21 07/26/21 History Xl] Potassium Chloride [Klor-Con M20] 10 meq PO DAILY 07/26/21 07/26/21 History Rosuvastatin [Crestor] 20 mg PO Q48H 07/26/21 07/26/21 History Tiotropium 2.5 Mcg/Puff [Spiriva 1 puff INHALATION RT-DAILY 07/26/21 07/26/21 History Respimat 2.5 Mcg] buPROPion SR [Wellbutrin SR] 150 mg PO BID 07/26/21 07/26/21 History Allergies Allergy/AdvReac Type Severity Reaction Status Date / Time Fish Containing Products Allergy Anaphylaxis Verified 07/26/21 16:27 [Fish] budesonide [From Symbicort] AdvReac Sores in Verified 07/26/21 20:55 mouth formoterol [From Symbicort] AdvReac Sores in Verified 07/26/21 20:55 mouth Physical Exam Vitals: Vital Signs Temp Pulse Pulse Resp BP BP Pulse Ox 07/27/21 20:50 97.7 F 84 16 158/83 98 07/27/21 15:59 80 16 07/27/21 15:51 81 16 07/27/21 14:00 98.0 F 92 19 149/89 97 07/27/21 08:30 104 H 18 98 07/27/21 07:52 98.0 F 111 H 18 152/95 99 07/27/21 01:28 97.5 F L 77 20 147/90 98 07/27/21 00:56 97.5 F L 74 20 164/95 98 07/27/21 00:30 79 16 146/92 94 L Intake and Output 07/27/21 07/27/21 07/27/21 06:59 14:59 22:59 Other: # Voids 1 2 Weight 82.554 kg General: well nourished, well developed, NAD. Vitals reviewed Eyes: PERRL, EOMI, conjunctiva normal HENT: normocephalic, mucus membranes moist Neck: supple, no JVD Lungs: normal respiratory effort. Diminished breath sounds, no wheezing CV: Regular rate and rhythm, no murmur. Peripheral pulses 2+ Abdomen: soft, nondistended, no organomegaly Lymph: no cervical or axillary LAD Skin: warm and dry. Neuro: A&Ox3, normal mood and affect Results CBC & Chem 7: 07/27/21 05:30 07/27/21 05:30 Labs: Abnormal Lab Results - Last 24 Hours (Table) 07/27/21 07/27/21 Range/Units 05:30 05:30 RBC 4.21 L (4.30-5.90) m/uL Lymphocytes # 0.4 L (1.0-4.8) k/uL Sodium 125 L (137-145) mmol/L Chloride 95 L (98-107) mmol/L Glucose 169 H (74-99) mg/dL Thrombosis Risk Factor Assmnt - Choose All That Apply Other Risk Factors: Yes Each Risk Factor Represents 2 Points: Age 61-74 years Thrombosis Risk Factor Assessment Total Risk Factor Score: 2 Thrombosis Risk Factor Assessment Level: Low Risk Assessment and Plan Plan: 1. Hyponatremia. secondary to diuretic use. Hold lasix. Start IV saline. Closely follow sodium 2. COPD exacerbation. Pulmonology consult. IV steroids and duonebs. Supplemental O2 as required 3. HTN. continue losartan
[2021-07-28] MEDS: METOPROLOL SUCCINATE (ER) 50 MG TAB.ER.24H PO SCH ×2 (07:07→21:25)
[2021-07-28] MEDS: buPROPion SR 150 MG TABLET.ER PO SCH ×2 (07:07→21:25)
[2021-07-28] MEDS: LOSARTAN 50 MG TAB PO SCH (07:07)
[2021-07-28 09:47] LABS: African American GFR (CKD) 116.4 (60.0-200.0); Anion Gap 10.6 mmol/L (10.00-18.00); BUN/Creat Ratio 11.14 Ratio (12.00-20.00); Blood Urea Nitrogen 7.8 mg/dL (9.0-27.0); Calcium 9.5 mg/dL (8.7-10.3); Carbon Dioxide 23.4 mmol/L (20.0-27.5); Non-African American GFR(CKD) 100.4 (60.0-200.0); Potassium 4.7 mmol/L (3.5-5.5)
[2021-07-28] MEDS: methylPREDNISolone SOD SUCCI 40 MG/ML 1 ML VIAL IV SCH ×2 (09:58→17:20)
--- NOTE | 2021-07-28 12:26 | P.PN ---
Subjective Progress Note Date: 07/28/21 Principal diagnosis: COPD exacerbation This is a pleasant 65-year-old male patient who follows with Dr. Bentley as his primary care provider. He has a history of hyperlipidemia, hypertension, gastroesophageal reflux disease, chronic obstructive pulmonary disease maintained on Spiriva and pro-air in the outpatient setting. He had been seen in our office and his FEV1 value was found to be 63% of predicted. The patient has a 45 year 1-1/2 pack per day smoking history and states he quit about 4 weeks ago. He also was having issues with swelling of the lower extremities and was recently placed on Lasix 40 mg in the a.m. 20 g in the p.m. He was also on potassium supplements. He states he has lost about 4 pounds. He was at his primary care provider's office yesterday and his O2 sats were found to be in the 80s during a 6 minute walk. He was referred here for further evaluation. Chest x-ray reveals evidence of COPD but no acute cardiopulmonary process. White count 5.5. Hemoglobin 13.2. Sodium 125. Initial potassium 6.1 currently 4.6. BUN 14. Creatinine 0.81. Glucose 169. Troponin negative 1. ProBNP 326. AST 32. ALT 36. Colmenares virus by PCR not detected. He is seen today in consultation on the regular medical floor. He is currently sitting up in bed. Awake and alert in no acute distress. He denies any worsening shortness of breath, cough or congestion. No fever or chills. He does have a mild end expiratory wheeze. Diminished. No significant peripheral edema. No dizziness or lightheadedness. He is 98% O2 saturation on 2 L/m per nasal cannula. He's been afebrile. Hemodynamically stable. He was initiated on IV Solu-Medrol, DuoNeb inhalations, 0.9% normal saline at 130 ML's per hour. The patient was seen today 07/28/2021 in follow-up on the regular medical floor. He is currently sitting up in bed. Awake and alert in no acute distress. He is maintaining good O2 saturations in the mid to upper 90s on 2 L/m per nasal cannula. His been afebrile. Hemodynamically stable. Sodium 129. Potassium 4.7. Creatinine 0.7. ProCalcitonin 0.07. He had been maintained on DuoNeb inhalations, IV Solu-Medrol. Objective - Vital Signs Vital signs: Vital Signs Temp 98.6 F 07/28/21 08:13 Pulse 74 07/28/21 08:13 Resp 18 07/28/21 08:13 BP 137/85 07/28/21 08:13 Pulse Ox 96 07/28/21 08:13 Intake & Output 07/27/21 07/28/21 07/28/21 18:59 06:59 18:59 Other: Voiding Method Toilet Toilet # Voids 2 2 - Exam GENERAL EXAM: Alert, active, pleasant 65-year-old gentleman, on 2 L nasal cannula, comfortable in no apparent distress. HEAD: Normocephalic. EYES: Normal reaction of pupils, equal size. NOSE: Clear with pink turbinates. THROAT: No erythema or exudates. NECK: No masses, no JVD. CHEST: No chest wall deformity. LUNGS: Equal air entry with no crackles, wheeze, rhonchi or dullness. CVS: S1 and S2 normal with no audible murmur, regular rhythm. ABDOMEN: No hepatosplenomegaly, normal bowel sounds, no guarding or rigidity. SPINE: No scoliosis or deformity SKIN: No rashes CENTRAL NERVOUS SYSTEM: No focal deficits, tone is normal in all 4 extremities. EXTREMITIES: There is no peripheral edema. No clubbing, no cyanosis. Peripheral pulses are intact. - Labs CBC & Chem 7: 07/27/21 05:30 07/28/21 06:25 Labs: Abnormal Lab Results - Last 24 Hours (Table) 07/28/21 Range/Units 06:25 Sodium 129 L (135-145) mmol/L Chloride 95 L (96-109) mmol/L BUN 7.8 L (9.0-27.0) mg/dL BUN/Creatinine Ratio 11.14 L (12.00-20.00) Ratio Glucose 118 H (70-110) mg/dL Assessment and Plan Assessment: 1 Acute hypoxemic respiratory failure secondary to an acute exacerbation of chronic obstructive pulmonary disease 2 Chronic obstructive pulmonary disease with an FEV1 value 63% of predicted, maintained on Spiriva and pro-air 3 Chronic tobacco dependence at one and half packs per day 45 years, quit 4 weeks ago 4 Hypovolemic hyponatremia secondary to diuretics and improved currently at 129 5 Hyperkalemia secondary to potassium supplements, improved currently 4.7 6 Hyperlipidemia 7 Hypertension 8 Gastroesophageal reflux disease 9 History of anxiety 10 History of daily alcohol use Plan: The patient was seen and evaluated Continue a prednisone taper starting at 40 mg daily for 4 days Continue DuoNeb inhalations, Ventolin HFA Evaluate for possible home oxygen Again educated regarding the importance of complete smoking cessation Okay for discharge once cleared by medicine Follow-up in our office in 1-2 weeks' I, the cosigning physician, performed a history & physical examination of the patient. Lungs sounds with faint end expiratory wheeze. Maintaining good O2 saturations in the 90s on 2 L/m per nasal cannula. I discussed the assessment and plan of care with my nurse practitioner, Gauri Puckett. I attest to the above note as dictated by her.
--- NOTE | 2021-07-28 13:48 | P.PN ---
Subjective Progress Note Date: 07/28/21 Nael Werner is a 65 yo M with PMH of COPD, tobacco abuse, HTN, HLD who presented to the ED on the recommendation of his PCP with worsening shortness of breath. He states he had been wheeizng more and having difficulty catching is breath over the past few months he also notes recent leg swelling. Pt was started on lasix and states in the past week he lost 4 lbs but he continues to be short of breath and now is getting dizzy and weak. On presentation WBC 8.1, sodium 123, K 6.1, trop negative, BNP 300, procalcitonin negative. 07/28/2021 maintaining O2 sats in the high 90s on 2 L nasal cannula. Afebrile, normal WBC. Occasional nonproductive cough-reports at baseline, denies shortness of breath. Continues on IV fluid hydration with sodium improved up to 129. Renal function stable. Objective - Vital Signs Vital signs: Vital Signs Temp 98.6 F 07/28/21 08:13 Pulse 74 07/28/21 08:13 Resp 18 07/28/21 08:13 BP 137/85 07/28/21 08:13 Pulse Ox 96 07/28/21 08:13 Intake & Output 07/27/21 07/28/21 07/28/21 18:59 06:59 18:59 Other: Voiding Method Toilet Toilet # Voids 2 2 - Exam General: Sitting up in bed, NAD. Vitals reviewed Eyes: PERRL, EOMI, conjunctiva normal. HENT: normocephalic, mucus membranes moist Neck: supple, no JVD Lungs: normal respiratory effort. Diminished breath sounds, no wheezing CV: Regular rate and rhythm, no murmur. Peripheral pulses 2+ Abdomen: soft, nondistended, no organomegaly Skin: warm and dry. Neuro: A&Ox3, normal mood and affect - Labs CBC & Chem 7: 07/27/21 05:30 07/28/21 06:25 Labs: Abnormal Lab Results - Last 24 Hours (Table) 07/28/21 Range/Units 06:25 Sodium 129 L (135-145) mmol/L Chloride 95 L (96-109) mmol/L BUN 7.8 L (9.0-27.0) mg/dL BUN/Creatinine Ratio 11.14 L (12.00-20.00) Ratio Glucose 118 H (70-110) mg/dL Assessment and Plan Assessment: Hyponatremia, hypovolemic, secondary to diuretic use Acute COPD exacerbation, improved Hypertension History of nicotine dependence, recently quit History of alcohol use Plan: Continue on current medication regime ,monitoring and symptomatic treatment. Continue on nebulized bronchodilators, IV steroids. Maintain IV fluid hydration,close monitoring of sodium. Repeat labs ordered for a.m. discharge planning in progress for potentially tomorrow pending continued improvement in sodium. The impression and plan of care has been dictated as directed. : I performed a history and examination of this patient, discussed the same with the dictator. I agree with the dictator's note ,documented as a scribe. Any additional findings or plans will be noted.
[2021-07-28] MEDS: ACETAMINOPHEN TAB 325 MG TAB PO PRN (19:15)
[2021-07-28] MEDS: AMITRIPTYLINE HCL 25 MG TAB PO SCH (21:25)
[2021-07-28] MEDS: SODIUM CHLORIDE 0.9% 1,000 ML IV SCH (21:26)
[2021-07-29] MEDS: methylPREDNISolone SOD SUCCI 40 MG/ML 1 ML VIAL IV SCH (00:14)
[2021-07-29] MEDS: SODIUM CHLORIDE 0.9% 1,000 ML IV SCH (05:37)
[2021-07-29] MEDS: ACETAMINOPHEN TAB 325 MG TAB PO PRN (07:26)
[2021-07-29 07:30] VITALS: BP 171/86; PULSE 68; RESP 20; TEMP 98.1
[2021-07-29] MEDS: METOPROLOL SUCCINATE (ER) 50 MG TAB.ER.24H PO SCH (07:53)
[2021-07-29] MEDS: LOSARTAN 50 MG TAB PO SCH (07:53)
[2021-07-29] MEDS: buPROPion SR 150 MG TABLET.ER PO SCH (07:53)
[2021-07-29 08:30] LABS: African American GFR (CKD) >90 (>60 ml/min/1.73 sqM); Anion Gap 4 mmol/L; Blood Urea Nitrogen 10 mg/dL (9-20); Calcium 9.9 mg/dL (8.4-10.2); Carbon Dioxide 28 mmol/L (22-30); Chloride 97 mmol/L (98-107); Glucose 108 mg/dL (74-99); Non-African American GFR(CKD) >90 (>60 ml/min/1.73 sqM); Potassium 4.5 mmol/L (3.5-5.1); Sodium 129 mmol/L (137-145)
--- NOTE | 2021-07-29 22:44 | P.DS ---
Providers Date of admission: 07/26/21 22:14 Attending physician: Bashir Fountain MD Consults: 07/26/21 22:16 Consult Physician Urgent Consulting Provider: Kiana Fortune Consult Reason/Comments: acute/chronic resp failure, copd Do you want consulting provider notified?: Yes Primary care physician: Sophia Bentley Hospital Course: Diagnoses: 1 acute exacerbation of chronic obstructive pulmonary disease. By pulmonary for discharge 2 Hypovolemic hyponatremia secondary to diuretics. Improved, sodium stable. Lasix and potassium were DC'd upon discharge and patient informed and he agrees 3 Chronic tobacco dependence at one and half packs per day 45 years, quit 4 weeks ago 4 Chronic obstructive pulmonary disease with an FEV1 value 63% of predicted, maintained on Spiriva and pro-air 5 Hyperkalemia secondary to potassium supplements 6 Hyperlipidemia 7 Hypertension 8 Gastroesophageal reflux disease 9 History of anxiety 10 History of daily alcohol use Hospital course: This is a pleasant 65-year-old male patient who follows with Dr. Bentley as his primary care provider. He has a history of hyperlipidemia, hypertension, gastroesophageal reflux disease, chronic obstructive pulmonary disease maintained on Spiriva and pro-air in the outpatient setting. He had been seen in our office and his FEV1 value was found to be 63% of predicted. The patient has a 45 year 1-1/2 pack per day smoking history and states he quit about 4 weeks ago. He also was having issues with swelling of the lower extremities and was recently placed on Lasix 40 mg in the a.m. 20 g in the p.m. He was also on potassium supplements. He states he has lost about 4 pounds. Patient presents with respiratory symptoms and found to have acute COPD exacerbation that's been treated with steroids and bronchodilator with pulmonary: Him closely, patient showed interval improvement and patient was cleared for discharge by pulmonary. Patient on discharge diet dyspnea, his saturating 97-98% on room air. No other symptoms like no chest pain, no diarrhea. No change in urine or bowel habits. No fever. Sodium on admission was 123 related to his Lasix which was stopped and treated with normal saline and his sodium improved up to 129 yesterday and today which is stable. Lasix. Upon discharge as well as potassium, patient informed and he agrees. Problems and management plan were discussed with the patient and he verbalized understanding and acceptance Patient was found stable and can be discharged home however he needs follow-up as an outpatient. Patient was instructed to follow up with PCP Dr. Bentley within one week and patient agrees Physical exam Gen: patient is a AAOx3, no distress CVS: S1-S2, RRR, no murmur Lungs: B/L CTA, no wheezing Abdomen: soft, no distention, no tenderness, positive bowel sounds Extremity: no leg edema or induration Time spent more than 35 minutes Patient Condition at Discharge: Stable Plan - Discharge Summary Discharge Rx Participant: Yes New Discharge Prescriptions: New predniSONE 10 mg PO DIRECTED #30 tab Continue Omeprazole [PriLOSEC] 20 mg PO DAILY Albuterol Sulfate [Proair Hfa] 2 puff INHALATION RT-Q6H PRN PRN Reason: Shortness Of Breath Dicyclomine HCl 10 mg PO TID Tiotropium 2.5 Mcg/Puff [Spiriva Respimat 2.5 Mcg] 1 puff INHALATION RT-DAILY buPROPion SR [Wellbutrin SR] 150 mg PO BID Rosuvastatin [Crestor] 20 mg PO Q48H Losartan [Cozaar] 50 mg PO DAILY Metoprolol Succinate (ER) [Toprol XL] 50 mg PO BID Amitriptyline HCl [Elavil] 25 mg PO HS Discontinued Furosemide [Lasix] 20 mg PO DAILY Potassium Chloride [Klor-Con M20] 10 meq PO DAILY Discharge Medication List Albuterol Sulfate [Proair Hfa] 2 puff INHALATION RT-Q6H PRN 09/29/18 [History] Omeprazole [PriLOSEC] 20 mg PO DAILY 09/29/18 [History] Amitriptyline HCl [Elavil] 25 mg PO HS 07/26/21 [History] Dicyclomine HCl 10 mg PO TID 07/26/21 [History] Losartan [Cozaar] 50 mg PO DAILY 07/26/21 [History] Metoprolol Succinate (ER) [Toprol XL] 50 mg PO BID 07/26/21 [History] Rosuvastatin [Crestor] 20 mg PO Q48H 07/26/21 [History] Tiotropium 2.5 Mcg/Puff [Spiriva Respimat 2.5 Mcg] 1 puff INHALATION RT-DAILY 07/26/21 [History] buPROPion SR [Wellbutrin SR] 150 mg PO BID 07/26/21 [History] predniSONE 10 mg PO DIRECTED #30 tab 07/29/21 [Rx] Follow up Appointment(s)/Referral(s): Tico Price DO [Doctor of Osteopathic Medicine] - 1 Week Sophia Bentley MD [Primary Care Provider] - 3 Days (we recommend to check your blood test with your doctor including your sodium level ) Activity/Diet/Wound Care/Special Instructions: heart healthy diet , fluid restriction to 1500 ml per day, salt restriction (less than one small table spoon per day) activity is restricted till you see your doctor Discharge Disposition: HOME SELF-CARE
== END 2021-07-29 10:34 | disposition home or self-care (01) ==
LOC: EC 15:29 → 4SSUR 22:14 → INTOOBSV 22:14 → 4SSUR 07-27 00:12 → UNDODISIN 07-29 10:34
PROVIDERS: ADMIT Family Medicine; ATTEND Family Medicine
DX: J44.1 Chronic obstructive pulmonary disease with (acute) exacerbation (principal); J96.21 Acute and chronic respiratory failure with hypoxia; E87.1 Hypo-osmolality and hyponatremia; E86.1 Hypovolemia; E87.5 Hyperkalemia; E78.5 Hyperlipidemia, unspecified; I10 Essential (primary) hypertension; R19.4 Change in bowel habit; K21.9 Gastro-esophageal reflux disease without esophagitis; F41.9 Anxiety disorder, unspecified; M19.90 Unspecified osteoarthritis, unspecified site; M79.89 Other specified soft tissue disorders; T50.1X5A Adverse effect of loop [high-ceiling] diuretics, initial encounter; Z20.822 Contact with and (suspected) exposure to COVID-19; Z87.891 Personal history of nicotine dependence; Z87.01 Personal history of pneumonia (recurrent); Z79.899 Other long term (current) drug therapy; Z88.8 Allergy status to other drugs, medicaments and biological substances; Z91.013 Allergy to seafood; Z90.49 Acquired absence of other specified parts of digestive tract; J44.0 Chronic obstructive pulmonary disease with (acute) lower respiratory infection; Z71.6 Tobacco abuse counseling; Z80.9 Family history of malignant neoplasm, unspecified
CPT/HCPCS: 96376 ×3; 96361 ×3; 96374; 99285; 36415; 94640 ×2; 94760; 93005; 83880; 80053; 80048 ×3; 82533; 83605; 84132; 84295; 84484; 85025 ×2; 85610; 85730; 84145; 87635; 71046; G0378 ×4; J2920 ×3; J2930; S0106 ×3

== ENCOUNTER → 2021-08-11 | Outpatient (CLI) | payer BC ==
--- NOTE | 2021-08-11 07:47 | CT ---
EXAMINATION TYPE: CT chest wo con DATE OF EXAM: 08/11/2021 COMPARISON: CT angiogram chest 12/04/2017 HISTORY: Dyspnea, COPD CT DLP: [address] of the chest was performed with lung and mediastinal window settings submitted. The la ck of contrast limits evaluation of the vascular, mediastinal and parenchymal structures including th e upper abdomen. LUNGS: Mild upper lobe emphysematous changes noted. The lungs are clear and free of infiltrate. No at electasis. No pulmonary nodule or mass is detected. No pleural effusion. No CT evidence of interst itial lung disease. MEDIASTINUM/EARNEST: Thoracic aorta is of normal caliber with limited evaluation given lack of contrast . The heart is not enlarged. No evidence for mediastinal mass. No lymph nodes greater than 1cm. T here are dense coronary coronary artery calcifications seen. UPPER ABDOMEN: No significant abnormality is seen. OTHER: No significant other abnormality. IMPRESSION: 1. Mild emphysematous changes identified.
== END | disposition home or self-care (01) ==
LOC: RADCTMAIN 07:01
PROVIDERS: ATTEND Family Medicine
DX: J43.9 Emphysema, unspecified (principal); F17.210 Nicotine dependence, cigarettes, uncomplicated
CPT/HCPCS: 71250

== ENCOUNTER → 2022-07-06 | Outpatient (CLI) | payer MEDICARE, BC ==
--- NOTE | 2022-07-09 11:46 | PE ---
EXAMINATION TYPE: PET CT fusion skull to thigh DATE OF EXAM: 07/06/2022 CLINICAL INDICATION:Male, 66 years old with history of R93.7; TECHNIQUE: Following the intravenous administration of 11.6 mCi of F-18 FDG, whole body images are performed from the skull base to the midthigh. Images are reviewed on the computer in the coronal, a xial, and sagittal planes. Reconstructed rotating images are created on independent workstation and reviewed on the computer. A non-contrast CT is performed in conjunction with the PET scan. Glucose level 92 mg/dL COMPARISON: CT 08/11/2021 PET/CT None, FINDINGS: Mediastinal SUV mean is 1.5. Hepatic parenchyma SUV mean is 2.0. SKULL BASE AND NECK: No suspicious radiotracer activity. CHEST, MEDIASTINUM, AND HILAR REGION: No suspicious radiotracer activity. ABDOMEN AND PELVIS: Focus of FDG activity within the sigmoid colon max SUV 7.3. OSSEOUS STRUCTURES: No suspicious radiotracer activity. Left hip arthroplasty changes without evidenc e for crease radiotracer activity. OTHER CT: Atherosclerosis of the arterial vasculature including the carotid bifurcations and coronary arteries. Hepatic steatosis. Left hip arthroplasty changes. IMPRESSION: Single focus of FDG activity within the sigmoid colon which is nonspecific could represent polyp vers us focal inflammation. Consider colonoscopy if not recently performed. No additional sites of abnorma l FDG activity identified.
== END | disposition home or self-care (01) ==
LOC: RADPETMAIN 13:09
PROVIDERS: ATTEND Family Medicine
DX: R93.7 Abnormal findings on diagnostic imaging of other parts of musculoskeletal system (principal)
CPT/HCPCS: 78815; A9552

== ENCOUNTER → 2023-06-03 | Outpatient (CLI) | payer MEDICARE, BC ==
--- NOTE | 2023-06-05 08:25 | MR ---
EXAMINATION TYPE: MR lumbar spine wo con DATE OF EXAM: 06/03/2023 COMPARISON: None HISTORY: No prior. low back pain for a few years worsened buy walking or standing, no known trauma, no sx, no CA CONTRAST: 0 mL intravenous Gadavist. TECHNIQUE: Multiplanar, multisequence images of the lumbar spine were acquired. FINDINGS: L5-S1: Broad-based disc bulge is present with anterior thecal sac compression. No AP spinal canal dontrell nosis is present. Neural foramen has moderate narrowing on the right and mild narrowing on the left. L4-L5: Mild broad-based disc bulge is present with anterior thecal sac contact. No AP spinal canal st enosis is present. There is mild right foraminal narrowing. L3-L4: Disc bulge is present with mild to moderate anterior thecal sac compression. This is greater i n the left paracentral region. Facet hypertrophy and ligamentum flavum laxity at the posterior latera l thecal sac contact greater on the left. Mild spinal canal narrowing may be present. No stenosis is identified. There is moderate right and moderate to severe left foraminal stenosis L2-L3: There is a large left paracentral disc herniation with moderate significant thecal sac impress ion there is spinal canal stenosis posterior to the disc herniation. Thecal sac is displaced towards the right. Facet hypertrophy is present. Severe left foraminal stenosis is present. L1-L2: No significant disc bulge or disc herniation. No spinal canal stenosis. Mild facet hypertroph y is present. Neural foramen are patent.. T12-L1: No significant disc bulge or disc herniation. No spinal canal stenosis. No foraminal stenos is. There is mild compression of L1 without posterior wall displacement. Based on signal, this appear s to be old. IMPRESSION: 1. Large left paracentral disc herniation L2-3 with significant thecal sac impression. 2. Multilevel foraminal stenosis discussed above. This generally appears greater on the right with th e exception of the most severe foraminal stenosis being left L2-3. Correlate for left L2-3 radicular symptoms. 3. Old compression of L1 without posterior wall displacement. 4. Multilevel disc bulge. 5. Mild spinal canal narrowing without stenosis L3-4
== END | disposition home or self-care (01) ==
LOC: RADMRIMAIN 10:55
PROVIDERS: ATTEND Family Medicine
DX: M51.16 Intervertebral disc disorders with radiculopathy, lumbar region (principal); M99.73 Connective tissue and disc stenosis of intervertebral foramina of lumbar region; M48.061 Spinal stenosis, lumbar region without neurogenic claudication
CPT/HCPCS: 72148

== ENCOUNTER → 2024-04-21 | Outpatient (CLI) | payer MEDICARE, BC ==
[2024-04-21 11:17] LABS: Basophils % (A) 0 %; Eosinophils # (A) 0.1 k/uL (0-0.7); Eosinophils % (A) 1 %; HCT 38.2 % (39.0-53.0); HGB 12.2 gm/dL (13.0-17.5); Lymphocytes # (A) 1.1 k/uL (1.0-4.8); Lymphocytes % (A) 11 %; MCH 31.5 pg (25.0-35.0); MCHC 31.8 g/dL (31.0-37.0); MCV 98.9 fL (80.0-100.0); Mean Platelet Volume 7.1; Monocytes # (A) 0.6 k/uL (0-1.0); Monocytes % (A) 5 %; Neutrophils # (A) 8.7 k/uL (1.3-7.7); Neutrophils % (A) 81 %; Platelet Count 310 k/uL (150-450); RBC 3.86 m/uL (4.30-5.90); RDW 14.6 % (11.5-15.5); WBC 10.7 k/uL (3.8-10.6)
--- NOTE | 2024-04-21 11:21 | XR ---
EXAMINATION TYPE: XR chest 2V DATE OF EXAM: 04/21/2024 COMPARISON: NONE CLINICAL INDICATION: Male, 68 years old with history of Z01.818 Pre surgical; , TECHNIQUE: XR chest 2V views of the chest. FINDINGS: The lungs are clear and there is no pneumothorax, pleural effusion, or focal pneumonia. Heart size normal and no overt failure. Osseous structures demonstrate hypertrophic and degenerative changes of the spine. Underlying emphysematous changes. Atherosclerotic changes of aorta. Prominent pulmonary ar teries can be associated pulmonary arterial hypertension. Generalized demineralization. Arthropathy o f the shoulders. Mild chronic appearing compression deformities midthoracic spine similar to prior ex am. IMPRESSION: 1. COPD. [facility], , 04/21/2024 11:18 AM
[2024-04-21 11:39] LABS: African American GFR (CKD) >90 (>60 ml/min/1.73 sqM); Anion Gap 8 mmol/L; Appearance,Urine Cloudy (Clear); Bacteria,Urine Occasional /hpf; Bilirubin,Urine Negative (Negative); Blood Urea Nitrogen 10 mg/dL (9-20); Blood,Urine Negative (Negative); Calcium 9.7 mg/dL (8.4-10.2); Carbon Dioxide 22 mmol/L (22-30); Chloride 100 mmol/L (98-107); Color,Urine Yellow; Glucose 99 mg/dL (74-99); Glucose,Urine (UA) Negative (Negative); Hyaline Casts,Urine 4 /lpf (0-2); Ketones,Urine Trace (Negative); Leukocyte Esterase,Urine Large (Negative); Mucus,Urine Occasional /hpf; Nitrite,Urine Negative (Negative); Non-African American GFR(CKD) >90 (>60 ml/min/1.73 sqM); PH, Urine 5.5 (5.0-8.0); Potassium 4.9 mmol/L (3.5-5.1); Protein,Urine 1+ (Negative); Sodium 130 mmol/L (137-145); Squamous Epithelial Cell,Urine <1 /hpf (0-4); WBC,Urine 44 /hpf (0-5)
[2024-04-21 11:50] LABS: INR 0.8 (<1.2); Partial Thromboplastin Time 23.4 sec (22.0-30.0); Prothrombin Time 9.6 sec (10.0-12.5)
== END | disposition home or self-care (01) ==
LOC: PAT 10:11
PROVIDERS: ATTEND Orthopaedic Surgery Orthopaedic Surgery of the Spine
DX: Z01.818 Encounter for other preprocedural examination (principal); Z22.322 Carrier or suspected carrier of Methicillin resistant Staphylococcus aureus; M43.26 Fusion of spine, lumbar region
CPT/HCPCS: 71046; 80048; 81001; 85025; 85610; 85730; 87070; 93005

== ENCOUNTER 2024-05-04 05:38 | Inpatient (IN) | payer MEDICARE, BC ==
[~2024-05-04 05:38] MED LIST changes: -LACTATED RINGERS 1,000 ML IV SCH; +ceFAZolin 1,000 MG in SODIUM CHLORIDE 0.9% IRRIGATIO 1,000 ML IRRIGATION PRN
[2024-05-04] MEDS: IV FLUID CONTINUATION 1,000 ML IV ONE ×2 (06:11)
[2024-05-04] MEDS ORDERED: fentaNYL (PF) 50 MCG/ML 2 ML AMP IVP PRN (06:17)
[2024-05-04] MEDS ORDERED: LIDOCAINE 1% (10MG/ML) FOR IV START INTRADERMA PRN (06:17)
[2024-05-04] MEDS ORDERED: HYDROmorphone 0.5 MG/0.5 ML SYRINGE IVP PRN ×2 (06:17→12:17)
[2024-05-04] MEDS: MIDAZOLAM 2 MG/2 ML VIAL IV PRN (06:44)
[2024-05-04] MEDS: ONDANSETRON 4 MG/2 ML VIAL IVP ONE (07:11)
[2024-05-04] MEDS: LACTATED RINGERS 1,000 ML IV SCH (07:12)
[2024-05-04] MEDS ORDERED: PHENYLEPHRINE 10 MG/ML VIAL ONE (07:32)
[2024-05-04] MEDS ORDERED: GLYCOPYRROLATE 0.2 MG/ML 2 ML VIAL ONE (07:32)
[2024-05-04] MEDS ORDERED: ACETAMINOPHEN IV (For NPO) 1,000 MG/100 ML VIAL ONE (07:32)
[2024-05-04] MEDS ORDERED: NEOSTIGMINE 1 MG/ML 10 ML VIAL ONE (07:32)
[2024-05-04] MEDS ORDERED: PROPOFOL 10 MG/ML 20 ML VIAL IV ONE (07:32)
[2024-05-04] MEDS ORDERED: MORPHINE SULFATE (PF) 0.3 MG/0.3 ML SYR ONE (07:32)
[2024-05-04] MEDS ORDERED: ROCURONIUM 10 MG/ML (5 ML VIAL) IV ONE (07:32)
[2024-05-04] MEDS ORDERED: fentaNYL (PF) 50 MCG/ML 2 ML AMP ONE (07:32)
[2024-05-04] MEDS ORDERED: ePHEDrine 50 MG/ML 1 ML VIAL ONE (07:32)
[2024-05-04] MEDS ORDERED: TRANEXAMIC 1,000 MG/100ML-NACL PREMIX BAG ONE (07:32)
[2024-05-04] MEDS ORDERED: LIDOCAINE 1% INJ 10MG/ML (20 ML MDV) ONE (07:32)
[2024-05-04] MEDS ORDERED: SUCCINYLCHOLINE CHLORIDE 200 MG/10 ML VIAL IV ONE (07:32)
[2024-05-04] MEDS ORDERED: KETAMINE HCL IN 0.9 % NACL 50 MG/5 ML SYRINGE ONE (07:32)
--- NOTE | 2024-05-04 07:54 | XR ---
EXAMINATION TYPE: XR chest 1V portable DATE OF EXAM: 05/04/2024 COMPARISON: 04/21/2024 HISTORY: CONFIRM CENTRAL LINE PLACEMENT TECHNIQUE: Single frontal view of the chest is obtained. FINDINGS: Central venous line is noted with its distal tip overlying the SVC. No evidence for pneumot horax. Lung volumes are diminished. Probable scattered basilar atelectasis. There is no focal air spa ce opacity, pleural effusion, or pneumothorax seen. The cardiac silhouette size is within normal little its. The osseous structures are intact. IMPRESSION: Lung volumes are diminished. Probable scattered basilar atelectasis. [facility], , 05/04/2024 7:52 AM
[2024-05-04] MEDS: BUPIVACAINE (PF) 0.5% 30 ML VIAL SQ ONE (08:15)
[2024-05-04] MEDS: LIDOCAINE 2%-EPI 1:100,000 20 ML VIAL SQ ONE (08:15)
[2024-05-04] MEDS: THROMBIN (BOVINE) 5,000 UNIT VIAL TOPICAL ONE (08:15)
[2024-05-04] MEDS: LACTATED RINGERS 1,000 ML IV ONE ×3 (08:18→13:51)
[2024-05-04] MEDS: ceFAZolin 1,000 MG in SODIUM CHLORIDE 0.9% IRRIGATIO 1,000 ML IRRIGATION PRN (08:18)
[2024-05-04] MEDS ORDERED: BENZOCAINE/MENTHOL LOZENG 1 EACH LOZENGE MUCOUS MEM PRN (12:17)
--- NOTE | 2024-05-04 12:17 | P.OP ---
Date of Procedure: 05/04/24 Preoperative Diagnosis: Degenerative scoliosis, severe spinal stenosis L2-3 L3-4, hernia nucleus pulposus L2-3 L3-4, neurogenic claudication, lower extreme radiculopathy, facet arthrosis, osteoporosis, low back pain Postoperative Diagnosis: Same Anesthesia: GETA Pathology: none sent Condition: stable Disposition: PACU Description of Procedure: DESCRIPTION OF PROCEDURE(S): BRIEF OPERATIVE NOTE Preoperative Diagnosis: Degenerative scoliosis, severe spinal stenosis L2-3 L3- 4, hernia nucleus pulposus L2-3 L3-4, neurogenic claudication, lower extreme ra diculopathy, facet arthrosis, osteoporosis, low back pain Postoperative Diagnosis: Same Procedure: Laminectomy and decompression L2-3 L3-[address] navigation aided Minimally invasive Posterior lateral decompression and facet fusion L2-3 L3-4 Minimally invasive Transforaminal lumbar interbody fusion for a 360 fusion L2-3 L3-4 Use of cement augmentation L2, L3, L4 bilaterally for screw fixation with fenestrated screws and bone cement Discectomy for decompression L2-3 L3-4 Placement of interbody graft L2-3 L3-4 Use of computer navigation for fusion L2-3-4 Local autogenous bone grafting Aspiration of bone marrow from the vertebral body pedicle L2 on the right Use of bone graft extenders Surgeon: Dr. Dempsey Machine Feeder: Brendon FUNEZ who is present throughout the entire the case persistence during positioning, dissection, exposure, visualization, and all crucial elements of the case as well as closure. Anesthesia: General anesthesia per Dr. Mtz Estimated blood loss: Approximately 250 mL Complications: None apparent Components implanted: K2M minimally invasive [place] pedicle screw system withscrews measuring 6.5 mm in diameter to rods one [place] interbody cage and 1 expandable cage with 10 mL of osteo amp bio4 bone graft substitute and 30 mL of the BX bone fibers to supplement the local autogenous bone graft and bone marrow aspirate We also used approximately 4 cc of bone cement in each of the vertebrae at L2-L3-L4 to augment the pedicle screws Disposition: To recovery room in good stable condition. OPERATIVE INDICATIONS The patient has had severe issues at their lower extremity in her lower back over the past several years with significant worsening over the past several months. Over the past few months the patient had pain at their back and their lower extremities. The patient is having severe radicular symptoms at their lower extremity with weakness. The patient is having significant pain in their back. They are unable to obtain any comfort. We did aggressive conservative treatment with medications therapy and interventional pain management however thery were not having any relief. Patient had degenerative scoliosis with severe stenosis at particularly L2-3 L3-4. The patient also showed evidence of a listhesis with some dynamic instability along with his scoliosis. The patient has been through conservative treatment. We discussed various treatment options including surgery, and the patient wishes to proceed with surgery We discussed the risk, patient's alternatives and benefits of surgery including but not limited to, risk of bleeding risk of infection, risk of need for further surgery, risk of decreased, loss of motion, muscle function, malunion nonunion, hardware failure, nerve damage, paralysis, heart attack, blindness and . They understood issues with the current pandemic and the possibility of exposure. OPERATIVE SUMMARY After discussing all the risks, patient alternatives and benefits at length, the patient elected to proceed with surgical intervention, signed informed consent, and presented for their procedure. The patient was seen and examined in the preoperative holding area and the surgical site was marked. The patient was given antibiotics and brought to the operating room. The patient was sedated and intubated by anesthesia in standard fashion. The patient was positioned on to the operating room table in a prone position on the appropriate frame which was well-padded and well molded. We were careful to pad any bony prominences and pressure points. We were careful to maintain the patient's cervical spine and good neutral alignment and position throughout. The patient was prepped and draped in a normal standard fashion. An appropriate timeout and keystone protocol performed. We were able to proceed with the surgery. The local wound area was infiltrated with local anesthetic. Over the right iliac crest I was able to make small stab incisions and establish a guidepin screw fixation to the iliac crest 2. I was able place the computer referencing device over the guidepins to establish an appropriate reference point for the Ziem CT navigation. We then were able to place patient in an appropriate drape and do a navigation spin for visualization and 3-D reconstruction of the lumbar spine. I was able utilize C-arm guidance and navigation to establish appropriate position over the pedicles bilaterally at the appropriate levels at L2-L3 and L4. With the appropriate levels confirmed was able to make small incisions over the appropriate pedicle sites bilaterally. Utilizing the computer navigation device I was able to establish b jocelin landmarks at the right iliac crest for a bony reference point for the navigation device. I was able to establish a Jamshidi needle over the lateral aspect of the pedicle and advanced the trocar into the pedicle being careful not to breech superiorly inferiorly medially or laterally using computer navigation device. Position was confirmed regularly with AP and lateral images on C-arm and with the computer navigation device at the appropriate levels bilaterally. I was able to establish the trocar into the pedicle appropriately into the posterior aspect of the vertebral body bilaterally at the appropriate levels. This was done at each of the pedicle positions and each of the vertebrae at L2- L3 and L4. At the superior vertebrae I was able to take approximately 15 mL of bone aspiration for use later in the case to supplement the allograft and autograft bone. I was able place the guidewire into the trocar and into the vertebral body appropriately under C-arm guidance. Dissection was taken down over the wire to the appropriate starting position for the screw placed. The appropriate length screw was chosen, threaded over the guidewire and screwed appropriately into the pedicle and vertebral body under C-arm guidance in excellent alignment and position with good bony purchase. This is done at each of the screw sites at the appropriate levels from L2-L4. We also did a repeat spin to fully assess the screws and showed excellent placement of all sick screws. At this point the screws were seated nicely in good contour and I chose to do cement augmentation of the screws. Each of the vertebrae had significant soft feel of the bone to go along with his chronic history of smoking which he had quit in the past few months. I think this led to significant osteoporosis and I felt the need to fully augment the screws. We had used fenestrated screws in each level of the appropriate application device was applied we mixed bone cement to cement was injected through the screws into the vertebral bodies under C-arm guidance. There is good fill within the vertebral bodies to augment the screws without any extravasation. The cement was allowed to cure appropriately. The screws had good stability. With the screws intact I extended the incision to connect the screw hole sites on the most symptomatic side on the left. I dissected down to establish access over the pars and lamina to the base of the spinous process. I started at L2 and then moved down to L3-4 similarly I was able to expose the facet joint. The capsule the facet was taken down and showed some facet arthrosis at the joint. I was able to use a combination of curettes and Kerrison rongeurs and a high- speed drill to take down the facet joint and do a facetectomy. I was able get excellent foraminal decompression and central decompression with undermining across midline to perform a laminectomy centrally and contralaterally. I was able get good central decompression. The ligamentum flavum was taken down to further decompress centrally and at bilateral neural foramen. I was able to expose the disc space and visualize the traversing nerve root. Note was made of some disc protrusion and disc herniation that was abutting the traversing nerve root at the level causing further compression of the nerve root. There is significant disc herniation at each of the levels causing significant stenosis. A discectomy was performed to help augment the decompression which it did well. I was able to establish a annulotomy at the appropriate level protecting soft tissue and neural structures. Note was made of some severe disc desiccation at the disc. I performed a complete discectomy with accommodation of curettes and rasps and scrapers. I was able get good endplate preparation at the disc space. I sized for the appropriate size interbody spacer protecting the soft tissue and neural structures. The wound was copiously irrigated and suctioned dry. There is no evidence of any dural tear or leak. There was some small dural abrasion on the left at L3-4 and I coated that area with Tisseel appropriately. There is no evidence of any leak. I was able to get good reduction of the sc oliosis. I was able to pack the disc space with local autogenous bone graft as well as a small amount of bone graft which was also placed into the interbody cage itself. Protecting the soft tissue structures and neural structures I was able place the interbody cage in good alignment and good position with good fit and fill at the interbody space. Position was confirmed with C-arm guidance. Good hemostasis maintained. There is no evidence of any dural tear or leak. The wound was irrigated and suctioned dry. With the hardware intact, intraoperative C-arm imaging was again taken which showed good alignment and position of the hardware at the appropriate levels at L2-3 and 4. We were then able to measure, contour and place the rods and appropriate hardware bilaterally. I was able to place capcrews, tighten them down, and torque them with the torque screwdriver appropriately. With this intact I was able to place the local autogenous bone graft with additional bone graft enhancer as necessary into the posterior lateral gutters over the decorticated transverse processes and facet joints on the contralateral side at L2-3 and L3-4. The remainder of the bone graft was placed over the facet joint on the contralateral side after taking down the facet joint capsule. With the bone graft intact, a stable construct, and good decompression at the appropriate levels, we were able to proceed with closure. Good hemostasis was maintained. There is no evidence of dural tear or leak. The fascia was closed for a watertight closure. he subcuticular tissue was closed with absorbable suture. The wound was cleaned and dried and dressed with the appropriate dressing. The drapes were broken down. The patient was gently rolled back onto their hospital bed being careful to maintain their cervical spine and good neutral alignment and position. They were woken up by anesthesia, extubated, and brought to the recovery room in good stable condition. The patient will be admitted to the hospital for appropriate postoperative care, medical management and monitoring. We will continue to follow them closely about the postoperative course.
[2024-05-04] MEDS ORDERED: ONDANSETRON 4 MG/2 ML VIAL IVP PRN (12:18)
[2024-05-04] MEDS ORDERED: ALBUTEROL NEBULIZED 2.5 MG/3 ML INHALATION PRN (12:20)
--- NOTE | 2024-05-04 12:45 | FL ---
EXAMINATION TYPE: FL guidance operating room, XR lumbar spine 2 or 3V DATE OF EXAM: 05/04/2024 12:02 PM COMPARISON: Pre Operative Images if available both CT/MRI or plain film CLINICAL INDICATION: Male, 68 years old with history of MIN INV LUMBAR FUSION; TECHNIQUE: FL guidance operating room, XR lumbar spine 2 or 3V, multiple fluoroscopic images provided for procedure. Total fluoroscopy time: 52 seconds Total submitted images to PACS: 9 DAP: [id number] mGym2 Gycm2 uGym2 cGycm2 or equivalent. FINDINGS: Fluoroscopic images during internal fixation/arthroplasty demonstrate fixation hardware in appropriat e position. Hardware appears intact. No immediate complication identified. IMPRESSION: 1. No evidence for intraoperative complication. 2. Please see the operative/procedural note for further details. [facility], , 05/04/2024 12:43 PM
--- NOTE | 2024-05-04 12:58 | P.ANPRN ---
Procedure Note - Anesthesia - Invasive Line Right Arterial Line Time Out Performed: Yes Date of Procedure: 05/04/24 Time of Procedure: 06:52 Location of Patient: PreOp Preparation: Sterile Prep, Sterile Dressing Arterial Line Location: Radial Ultrasound Used: No Purpose - Visualization and Identification of Vasculature: No Image Stored and Saved: No Narrative: Invasive line placement per sterile protocol utilized.
--- NOTE | 2024-05-04 12:59 | P.ANPRN ---
Procedure Note - Anesthesia - Invasive Line Right Central Line Time Out Performed: Yes Date of Procedure: 05/04/24 Time of Procedure: 07:05 Location of Patient: PreOp Preparation: Sterile Prep, Sterile Dressing Central Line Location: Internal Jugular Ultrasound Used: No Purpose - Visualization and Identification of Vasculature: No Image Stored and Saved: No Narrative: Invasive line placement per sterile protocol utilized.
[2024-05-04] MEDS: HYDROcodone/APAP 5-325MG 1 EACH TAB PO PRN (14:48)
[2024-05-04] MEDS: SODIUM CHLORIDE 0.9% 1,000 ML IV SCH (14:49)
[2024-05-04] MEDS: DICYCLOMINE 10 MG CAP PO SCH (16:41)
[2024-05-04] MEDS: HYDROmorphone 1 MG/ML 1 ML SYRINGE IVP PRN (19:28)
[2024-05-04 19:54] LABS: Glucose,Whole Blood 106 mg/dL (70-110)
[2024-05-04] MEDS: buPROPion SR 150 MG TABLET.ER PO SCH (20:48)
[2024-05-04] MEDS: METOPROLOL SUCCINATE (ER) 50 MG TAB.ER.24H PO SCH (20:48)
[2024-05-04] MEDS: NICOTINE 21MG/24HR PATCH TRANSDERM SCH (20:48)
[2024-05-04] MEDS: AMITRIPTYLINE HCL 25 MG TAB PO SCH (20:48)
[2024-05-04] MEDS: LOSARTAN 50 MG TAB PO SCH (20:48)
[2024-05-05] MEDS: CYCLOBENZAPRINE 10 MG TAB PO PRN
[2024-05-05] MEDS: ASPIRIN 81 MG PO SCH (08:28)
[2024-05-05] MEDS: LOSARTAN 50 MG TAB PO SCH (08:28)
[2024-05-05] MEDS: PANTOPRAZOLE 40 MG TABLET PO SCH (08:29)
[2024-05-05] MEDS: SENNOSIDES-DOCUSATE SODIUM 1 EACH TAB PO SCH (08:29)
[2024-05-05] MEDS: CLOPIDOGREL 75 MG TAB PO SCH (08:29)
[2024-05-05] MEDS: ATORVASTATIN 40 MG TAB PO SCH (08:29)
[2024-05-05] MEDS: TIOTROPIUM 2.5 MCG INHALER INHALATION SCH (08:50)
[2024-05-05] MEDS ORDERED: VITAMIN D3 PO SCH (09:00)
[2024-05-05] MEDS ORDERED: VITAMIN B12 PO SCH (09:00)
[2024-05-05 09:02] LABS: BUN/Creat Ratio 8.14 Ratio (12.00-20.00); Blood Urea Nitrogen 5.7 mg/dL (9.0-27.0); Calcium 8.3 mg/dL (8.7-10.3); Carbon Dioxide 24.3 mmol/L (21.6-31.8); Chloride 100 mmol/L (96-109); Glucose 115 mg/dL (70-110); Potassium 4.4 mmol/L (3.5-5.5); Sodium 131 mmol/L (135-145)
[2024-05-05] MEDS ORDERED: IPRATROPIUM-ALBUTEROL 3 ML NEB INHALATION PRN (10:18)
[2024-05-05 10:36] LABS: Basophils # (A) 0.03 X 10*3/uL (0.00-0.10); Basophils % (A) 0.3 %; Eosinophils # (A) 0.07 X 10*3/uL (0.04-0.35); Eosinophils % (A) 0.7 %; HCT 27.2 % (39.6-50.0); HGB 8.9 g/dL (13.0-17.0); Lymphocytes # (A) 0.96 X 10*3/uL (0.90-5.00); Lymphocytes % (A) 9.4 %; MCH 32.4 pg (27.0-32.0); MCHC 32.7 g/dL (32.0-37.0); MCV 98.9 FL (80.0-97.0); Mean Platelet Volume 9.7 FL (9.5-12.2); Monocytes % (A) 9.8 %; NRBC Per 100 WBC 0 X 10*3/uL (0.00-0.01); Neutrophils # (A) 8.13 X 10*3/uL (1.80-7.70); Neutrophils % (A) 79.5 %; Platelet Count 174 X 10*3/uL (140-440); RBC 2.75 X 10*6/uL (4.40-5.60); RDW 14.6 % (11.5-14.5); WBC 10.22 X 10*3/uL (4.50-10.00)
--- NOTE | 2024-05-05 10:49 | P.CONS ---
History of Present Illness - Reason for Consult Consult date: 05/05/24 Medical management hypertension, COPD Requesting physician: Marilee Dempsey - Chief Complaint Degenerative scoliosis, severe spinal stenosis L2-3, L3-4, herniated nucleu - History of Present Illness This is a 68-year-old gentleman with past medical history significant for deg enerative scoliosis, severe spinal stenosis L2-3 L3-4, hernia nucleus pulposus L2-3 L3-4, neurogenic claudication, lower extreme radiculopathy, facet arthrosis, osteoporosis, low back pain status post laminectomy, decompression ,Facet fusion ,transforaminal lumbar interbody fusion for 360 degree fusion, dissected me for decompression, L2-3 L3-4, postop day #1. Chest x-ray reporting lung volumes diminished, probable scattered basilar atelectasis. Incentive spirometer up to 1800 currently. Reports significant back pain throughout the night and this morning. Reports achiness of anterior right thigh. Denies numbness or tingling. patient also wears 1 L nasal cannula O2 at night/BiPAP. Denies chest pain, palpitations or shortness of breath. Currently maintaining O2 sats of mid 90s on 2 L nasal cannula. Hemoglobin 8.9, preop hemoglobin 12.2., Platelets 174, preop 310. MCV 98.9. Sodium 131, potassium 4.4, bicarb 24.3, BUN 5.7, creatinine 0.7 glucose 115. Review of Systems ROS Statement: Those systems with pertinent positive or pertinent negative responses have been documented in the HPI. ROS Other: All systems not noted in ROS Statement are negative. Past Medical History Past Medical History: COPD, Deep Vein Thrombosis (DVT), GERD/Reflux, Hyperli pidemia, Hypertension, Osteoarthritis (OA) Additional Past Medical History / Comment(s): change in bowel habits, frequent loose stools, atherosclerosis, small cyst in kidney. lower back pain. pt had recent wt loss PET scan end of colon lit up. has 02 at home uses rarely. History of Any Multi-Drug Resistant Organisms: None Reported Past Surgical History: Adenoidectomy, Hernia Repair, Orthopedic Surgery, Tonsillectomy Additional Past Surgical History / Comment(s): RIGHT KNEE arthroscopy, albina foot bunionectomy and spurs, sinus surgery, rt groin hernia repair. rt leg blockage removed Past Anesthesia/Blood Transfusion Reactions: No Reported Reaction Past Psychological History: Anxiety Smoking Status: Former smoker Past Alcohol Use History: Daily Past Drug Use History: None Reported - Past Family History Mother Family Medical History: No Reported History Father Family Medical History: Cancer Additional Family Medical History / Comment(s): defibrillator Medications and Allergies Home Medications Medication Instructions Recorded Confirmed Type Albuterol Sulfate [Proair Hfa] 2 puff INHALATION RT-Q6H PRN 09/29/18 05/04/24 History Omeprazole [PriLOSEC] 20 mg PO DAILY 09/29/18 05/04/24 History Amitriptyline HCl [Elavil] 25 mg PO HS 07/26/21 05/04/24 History Dicyclomine HCl 10 mg PO TID 07/26/21 05/04/24 History Losartan [Cozaar] 100 mg PO DAILY 07/26/21 05/04/24 History Metoprolol Succinate (ER) [Toprol 50 mg PO BID 07/26/21 05/04/24 History XL] Rosuvastatin [Crestor] 20 mg PO Q48H 07/26/21 05/04/24 History Tiotropium 2.5 Mcg/Puff [Spiriva 1 puff INHALATION RT-DAILY 07/26/21 05/04/24 History Respimat 2.5 Mcg] buPROPion SR [Wellbutrin SR] 150 mg PO BID 07/26/21 05/04/24 History Aspirin 81 mg PO DAILY 07/31/22 05/04/24 History Losartan [Cozaar] 50 mg PO HS 07/31/22 05/04/24 History Unk Vitamin B12 1 tab PO DAILY 07/31/22 05/04/24 History Unk Vitamin D3 1 tab PO DAILY 07/31/22 05/04/24 History Clopidogrel [Plavix] 75 mg PO DAILY 05/01/24 05/04/24 History Allergies Allergy/AdvReac Type Severity Reaction Status Date / Time Fish Containing Products Allergy Anaphylaxis Verified 05/04/24 07:24 [Fish] budesonide [From Symbicort] AdvReac Sores in Verified 05/04/24 07:24 mouth formoterol [From Symbicort] AdvReac Sores in Verified 05/04/24 07:24 mouth Physical Exam Vitals: Vital Signs Temp Pulse Pulse Resp BP BP BP 05/05/24 07:10 97.8 F 75 17 157/76 05/05/24 02:00 98.5 F 97 14 131/75 05/04/24 22:18 98.5 F 97 16 131/75 05/04/24 20:00 98.1 F 74 14 115/71 05/04/24 16:45 65 119/64 05/04/24 16:44 97.7 F 76 18 121/68 05/04/24 16:30 61 120/65 05/04/24 16:15 76 115/63 05/04/24 16:00 74 127/68 05/04/24 15:45 68 107/50 05/04/24 15:30 67 129/65 05/04/24 15:15 67 160/74 05/04/24 15:00 58 L 155/85 05/04/24 14:45 97.6 F 65 16 160/82 05/04/24 14:00 64 16 106/55 05/04/24 13:45 68 16 116/57 05/04/24 13:30 66 16 109/59 05/04/24 13:26 16 05/04/24 13:25 05/04/24 13:15 71 16 108/55 107/40 05/04/24 13:00 63 16 107/57 108/41 05/04/24 12:45 62 18 110/56 102/38 05/04/24 12:30 68 18 100/57 92/38 05/04/24 12:15 97.7 F 76 18 117/59 Pulse Ox 05/05/24 07:10 94 L 05/05/24 02:00 94 L 05/04/24 22:18 94 L 05/04/24 20:00 98 05/04/24 16:45 98 05/04/24 16:44 96 05/04/24 16:30 98 05/04/24 16:15 97 05/04/24 16:00 98 05/04/24 15:45 97 05/04/24 15:30 98 05/04/24 15:15 98 05/04/24 15:00 99 05/04/24 14:45 96 05/04/24 14:00 93 L 05/04/24 13:45 92 L 05/04/24 13:30 92 L 05/04/24 13:26 92 L 05/04/24 13:25 90 L 05/04/24 13:15 97 05/04/24 13:00 98 05/04/24 12:45 98 05/04/24 12:30 99 05/04/24 12:15 99 Intake and Output 05/04/24 05/05/24 05/05/24 22:59 06:59 14:59 Intake Total 120 Output Total 350 1300 Balance -230 -1300 Intake: Oral 120 Output: Urine 350 1300 Other: Voiding Method Indwelling Catheter General: well nourished, well developed, NAD. Vitals reviewed Eyes: PERRL, EOMI, conjunctiva normal HENT: normocephalic, mucus membranes moist Neck: supple, no JVD Lungs: normal respiratory effort. Diminished breath sounds with fine bibasilar crackles CV: Regular rate and rhythm, no murmur. Peripheral pulses 2+ Abdomen: soft, nondistended, no organomegaly Lymph: no cervical or axillary LAD Skin: warm and dry. Neuro: A&Ox3, normal mood and affect Results CBC & Chem 7: 05/05/24 03:12 Assessment and Plan Assessment: Degenerative scoliosis, severe spinal stenosis ,hernia nucleus pulposus L2-3 L3-4, neurogenic claudication, lower extreme radiculopathy, facet arthrosis, osteoporosis, low back pain status post laminectomy, decompression ,Facet fusion ,transforaminal lumbar interbody fusion for 360 degree fusion, dissected me for decompression, L2-3 L3-4. Acute postoperative blood loss anemia, expected outcome Acute hypoxic respiratory failure secondary to bibasilar atelectasis Gastroesophageal reflux disease Hypertension Hyperlipidemia COPD, has nebulizer at home Obstructive sleep apnea, uses BiPAP at home Prior nicotine dependence Daily alcohol use, reports 4 beers per day Plan: Continue on current medication resume ,monitoring and symptomatic rachid atment. Pain management, DVT prophylaxis as per primary. PT/OT. Aggressive pulmonary toileting with incentive spirometer reinforced-currently up to 1800. Close monitoring of coags. with repeat labs ordered for a.m. CIWA protocol added to med regimen. Magnesium level, hemoglobin A1c ordered. thank you for the consult. The impression and plan of care has been dictated as directed. : I performed a history and examination of this patient, discussed the same with the dictator. I agree with the dictator's note ,documented as a scribe. Any additional findings or plans will be noted.
[2024-05-05] MEDS ORDERED: HYDROcodone/APAP 7.5-325MG 1 EACH TAB PO PRN (11:15)
[2024-05-05] MEDS: FOLIC ACID 1 MG TAB PO SCH (11:41)
[2024-05-05] MEDS: THIAMINE 100 MG TAB PO SCH (11:41)
[2024-05-05] MEDS: SYMBICORT 80-4.5 MCG INHALER INHALATION SCH (11:43)
[2024-05-05] MEDS: HYDROcodone/APAP 7.5-325MG 1 EACH TAB PO PRN (11:43)
[2024-05-05] MEDS: IPRATROPIUM-ALBUTEROL 3 ML NEB INHALATION SCH (11:43)
--- NOTE | 2024-05-05 12:27 | P.PN ---
Progress Note - Text Progress Note Date: 05/05/24 Postoperative day #1 Patient is seen and examined today at bedside. The patient has some pain around the surgical site as expected. He was having some difficulty with pain control with the orals but is doing well with the IVs. Will bump up his oral pain medication. Pain is being controlled with medication. He is voiding freely with the [place] discontinued. He is tolerating his diet without any nausea or vomiting. He has been up to a chair already today. He feels his legs are doing well but his back is giving him significant pain. Physical Exam Afebrile with stable vital signs Abdomen is soft nontender. Chest has good excursion deep and space expiration The incision site is clean dry and intact. No erythema there is no purulence. Extremities have not had neurologic change from prior to surgery. He has sustained dorsiflexion plantarflexion EHL intact Calves and thighs were soft nontender without evidence of DVT. Assessment/Plan Postoperative day #1 status post minimally invasive decompression and fusion L2- 3 L3-4 for his disc herniation with stenosis Patient is progressing as expected from the surgery. Will try to do better with pain control with bumping up his oral pain medications. We will continue to increase the patient's mobilization with therapy. He has already been up out of bed today. He is voiding freely. We will continue pain control with oral or IV medications. We'll continue to follow patient closely. He has an LSO brace at home which his will bring in to try to give him support when he is up and about given his significant osteoporosis. It is okay for him to transfer him to do light mobility without the brace. Hopefully he will continue to make progress and be ready for home and another couple of days
[2024-05-05] MEDS: NICOTINE 21MG/24HR PATCH TRANSDERM SCH (20:38)
[2024-05-06 08:43] LABS: Basophils # (A) 0.04 X 10*3/uL (0.00-0.10); Basophils % (A) 0.3 %; Eosinophils # (A) 0.08 X 10*3/uL (0.04-0.35); Eosinophils % (A) 0.7 %; HCT 27.5 % (39.6-50.0); HGB 9.1 g/dL (13.0-17.0); Lymphocytes # (A) 1.06 X 10*3/uL (0.90-5.00); Lymphocytes % (A) 8.7 %; MCH 32.9 pg (27.0-32.0); MCHC 33.1 g/dL (32.0-37.0); MCV 99.3 FL (80.0-97.0); Mean Platelet Volume 9.8 FL (9.5-12.2); Monocytes # (A) 1.16 X 10*3/uL (0.20-1.00); Monocytes % (A) 9.5 %; NRBC Per 100 WBC 0 X 10*3/uL (0.00-0.01); Neutrophils # (A) 9.81 X 10*3/uL (1.80-7.70); Neutrophils % (A) 80.2 %; Platelet Count 142 X 10*3/uL (140-440); RBC 2.77 X 10*6/uL (4.40-5.60); RDW 14.1 % (11.5-14.5); WBC 12.22 X 10*3/uL (4.50-10.00)
[2024-05-06 08:49] LABS: BUN/Creat Ratio 9.57 Ratio (12.00-20.00); Blood Urea Nitrogen 6.7 mg/dL (9.0-27.0); Calcium 8.2 mg/dL (8.7-10.3); Carbon Dioxide 23.8 mmol/L (21.6-31.8); Chloride 96 mmol/L (96-109); Glucose 102 mg/dL (70-110); Potassium 4.4 mmol/L (3.5-5.5); Sodium 128 mmol/L (135-145)
--- NOTE | 2024-05-06 08:57 | P.PN ---
Progress Note - Text Progress Note Date: 05/06/24 Orthopedic Spine History of present illness: Patient is a pleasant 68-year-old male who is seen and examined at the bedside following posterior lateral decompression and fusion performed Saturday. Patient states they are doing well post operatively. Lower extremity leg pain is better controlled. He does have pain at surgical sites at his lumbar spine. Currently does not complain of nausea, vomiting, fever, or chills. Patient states pain has been adequately controlled. Patient is eating and voiding freely without difficulty. His Burciaga catheter has been discontinued. He is able to ambulate with the assistance of physical therapy. He is utilizing a walker. He has a walker for home use. He continues to be seen and examined by medicine for his other medical diagnoses. Physical Exam Lumbar Fusion: Status post surgical day number Patient is awake, alert, and oriented 3 Vital signs stable Good chest excursion with deep inspiration and expiration Abdomen soft nontender Dorsiflexion, plantarflexion, and extensor hallucis longus positive sustained bilaterally No signs or symptoms of DVT; no calf pain; pneumatic cuffs intact bilateral lower extremities Optifoam dressings are clean, dry, and intact over the lumbar spine and right iliac crest; no erythema, purulence, or signs of infection Neurovascularly intact bilaterally lower extremities Assessment: Status post L2-3 and L3-4 minimally invasive posterior lateral decompression and fusion with transforaminal lumbar interbody fusion L2-3 and L3-4 severe spinal stenosis Degenerative scoliosis Lumbar herniated nucleus pulposus Neurogenic claudication Lumbar facet spondylosis Low back pain Lower extremity radiculopathy Osteoporosis Hypertension Hyperlipidemia COPD Plan: 1. Ambulate as tolerated; work with Physical Therapy to increase mobilization 2. Continue pain control with IV and oral medications; will plan to begin weaning the patient off of IV narcotic medication in anticipation for discharge home in the next 1-2 days; could plan for discharge home as early as tomorrow, 05/07/2024 3. Dressings to remain intact with Optifoam; patient may shower with dressings intact 4. Medical management can continue to manage patient for patient's other medical diagnoses 5. We will continue to follow the patient closely; depending on the patient's progress, we may plan for discharge home as early as tomorrow, 05/07/2024 6. Patient can follow-up with Brendon Noel PA-C or Dr. Des Dempsey at [facility] in 2-3 weeks following discharge
--- NOTE | 2024-05-06 09:04 | P.PN ---
Subjective Progress Note Date: 05/06/24 This is a 68-year-old gentleman with past medical history significant for degenerative scoliosis, severe spinal stenosis L2-3 L3-4, hernia nucleus pulposus L2-3 L3-4, neurogenic claudication, lower extreme radiculopathy, facet arthrosis, osteoporosis, low back pain status post laminectomy, decompression , Facet fusion ,transforaminal lumbar interbody fusion for 360 degree fusion, dissected me for decompression, L2-3 L3-4, postop day #1. Chest x-ray reporting lung volumes diminished, probable scattered basilar atelectasis. Incentive spirometer up to 1800 currently. Reports significant back pain throughout the night and this morning. Reports achiness of anterior right thigh. Denies numbness or tingling. patient also wears 1 L nasal cannula O2 at night/BiPAP. Denies chest pain, palpitations or shortness of breath. Currently maintaining O2 sats of mid 90s on 2 L nasal cannula. Hemoglobin 8.9, preop hemoglobin 12.2., Platelets 174, preop 310. MCV 98.9. Sodium 131, potassium 4.4, bicarb 24.3, BUN 5.7, creatinine 0.7 glucose 115. 05/06/24. Pt seen and evaluated at bedside, he continues to endorse significant low back pain which is slightly improved from yesterday. He has not yet ambulated with PT. He denies numbness, tingling, fever, chills. No shortness of breath. Hgb stable at 9.1 today. Objective - Vital Signs Vital signs: Vital Signs Temp 98.1 F 05/06/24 07:05 Pulse 73 05/06/24 07:05 Resp 16 05/06/24 07:05 BP 168/86 05/06/24 07:05 Pulse Ox 96 05/06/24 07:05 FiO2 Intake & Output 05/05/24 05/06/24 05/06/24 18:59 06:59 18:59 Intake Total 120 540 Output Total 950 400 Balance -830 540 -400 Intake: Oral 120 540 Output: Urine 950 400 Uretheral (Burciaga) 350 Other: Voiding Method Indwelling Catheter Indwelling Catheter # Voids 2 - Exam Obese male NAD RRR CTAB Nontender nondistended - Labs CBC & Chem 7: 05/06/24 05:16 05/06/24 05:16 Labs: Abnormal Lab Results - Last 24 Hours (Table) 05/05/24 05/05/24 05/05/24 Range/Units 03:12 03:12 10:27 WBC 10.22 H (4.50-10.00) X 10*3/uL RBC 2.75 L (4.40-5.60) X 10*6/uL Hgb 8.9 L (13.0-17.0) g/dL Hct 27.2 L (39.6-50.0) % MCV 98.9 H (80.0-97.0) FL MCH 32.4 H (27.0-32.0) pg RDW 14.6 H (11.5-14.5) % Immature Gran # (0.00-0.04) X 10*3/uL Neutrophils # 8.13 H (1.80-7.70) X 10*3/uL Monocytes # (0.20-1.00) X 10*3/uL Sodium 131 L (135-145) mmol/L BUN 5.7 L (9.0-27.0) mg/dL BUN/Creatinine Ratio 8.14 L (12.00-20.00) Ratio Glucose 115 H (70-110) mg/dL Calcium 8.3 L (8.7-10.3) mg/dL Magnesium 1.4 L (1.5-2.4) mg/dL 05/06/24 05/06/24 Range/Units 05:16 05:16 WBC 12.22 H (4.50-10.00) X 10*3/uL RBC 2.77 L (4.40-5.60) X 10*6/uL Hgb 9.1 L (13.0-17.0) g/dL Hct 27.5 L (39.6-50.0) % MCV 99.3 H (80.0-97.0) FL MCH 32.9 H (27.0-32.0) pg RDW (11.5-14.5) % Immature Gran # 0.07 H (0.00-0.04) X 10*3/uL Neutrophils # 9.81 H (1.80-7.70) X 10*3/uL Monocytes # 1.16 H (0.20-1.00) X 10*3/uL Sodium 128 L (135-145) mmol/L BUN 6.7 L (9.0-27.0) mg/dL BUN/Creatinine Ratio 9.57 L (12.00-20.00) Ratio Glucose (70-110) mg/dL Calcium 8.2 L (8.7-10.3) mg/dL Magnesium (1.5-2.4) mg/dL Assessment and Plan Plan: Continue with current medical regimen, pain control, protonix, encouarage ambulation. Continue CIWA and NRT. He is medically stable for discharge
--- NOTE | 2024-05-07 09:17 | P.PN ---
Progress Note - Text Progress Note Date: 05/07/24 Orthopedic Spine History of present illness: Patient is a pleasant 68-year-old male who is seen and examined at the bedside following posterior lateral decompression and fusion performed Saturday. Patient states they are doing well post operatively. Lower extremity leg pain is better controlled. He does have pain at surgical sites at his lumbar spine. Currently does not complain of nausea, vomiting, fever, or chills. Patient states pain has been adequately controlled but continues to have some pain more significant at his lumbar spine. Patient is eating and voiding freely without difficulty. His Burciaga catheter has been discontinued. He is voiding without difficulty. He is able to ambulate with the assistance of physical therapy. He has been able to work with physical therapy but is unable to ambulate much farther than to the door. He is utilizing a walker. He has a walker for home use. He continues to be seen and examined by medicine for his other medical diagnoses. He continues to have a central line in place. This will need to be discontinued by anesthesia. Physical Exam Lumbar Fusion: Status post surgical day number 3 Patient is awake, alert, and oriented 3 Vital signs stable Good chest excursion with deep inspiration and expiration Dorsiflexion, plantarflexion, and extensor hallucis longus positive sustained bilaterally No signs or symptoms of DVT; no calf pain; pneumatic cuffs intact bilateral lower extremities Optifoam dressings are clean, dry, and intact over the lumbar spine and right iliac crest; no erythema, purulence, or signs of infection Neurovascularly intact bilaterally lower extremities Assessment: Status post L2-3 and L3-4 minimally invasive posterior lateral decompression and fusion with transforaminal lumbar interbody fusion L2-3 and L3-4 severe spinal stenosis Degenerative scoliosis Lumbar herniated nucleus pulposus Neurogenic claudication Lumbar facet spondylosis Low back pain Lower extremity radiculopathy Osteoporosis Hypertension Hyperlipidemia COPD Plan: 1. Ambulate as tolerated; work with Physical Therapy to increase mobilization 2. Continue pain control with IV and oral medications; will plan to begin weaning the patient off of IV narcotic medication in anticipation for discharge home in the next 1-2 days; could plan for discharge home as early as tomorrow, 3. Dressings to remain intact with Optifoam; patient may shower with dressings intact 4. Medical management can continue to manage patient for patient's other medical diagnoses 5. Central line to be discontinued by anesthesia 6. Okay to discontinue IV fluids 7. We will continue to follow the patient closely; depending on the patient's progress, we may plan for discharge home as early as tomorrow, 05/08/2024 8. Patient can follow-up with Brendon Noel PA-C or Dr. Des Dempsey at [facility] in 2-3 weeks following discharge
--- NOTE | 2024-05-07 22:29 | P.PN ---
Subjective Progress Note Date: 05/07/24 This is a 68-year-old gentleman with past medical history significant for degenerative scoliosis, severe spinal stenosis L2-3 L3-4, hernia nucleus pulposus L2-3 L3-4, neurogenic claudication, lower extreme radiculopathy, facet arthrosis, osteoporosis, low back pain status post laminectomy, decompression , Facet fusion ,transforaminal lumbar interbody fusion for 360 degree fusion, dissected me for decompression, L2-3 L3-4, postop day #1. Chest x-ray reporting lung volumes diminished, probable scattered basilar atelectasis. Incentive spirometer up to 1800 currently. Reports significant back pain throughout the night and this morning. Reports achiness of anterior right thigh. Denies numbness or tingling. patient also wears 1 L nasal cannula O2 at night/BiPAP. Denies chest pain, palpitations or shortness of breath. Currently maintaining O2 sats of mid 90s on 2 L nasal cannula. Hemoglobin 8.9, preop hemoglobin 12.2., Platelets 174, preop 310. MCV 98.9. Sodium 131, potassium 4.4, bicarb 24.3, BUN 5.7, creatinine 0.7 glucose 115. 05/06/24. Pt seen and evaluated at bedside, he continues to endorse significant low back pain which is slightly improved from yesterday. He has not yet ambulated with PT. He denies numbness, tingling, fever, chills. No shortness of breath. Hgb stable at 9.1 today. 05/07/24 Pt reports significant improvement to his pain, states it is still painful to stand and ambulate but better than yesterday. Denies nausea, constipation fever, chills. Objective - Vital Signs Vital signs: Vital Signs Temp 98.3 F 05/07/24 19:14 Pulse 75 05/07/24 21:00 Resp 18 05/07/24 21:00 BP 156/74 05/07/24 19:14 Pulse Ox 94 L 05/07/24 19:14 FiO2 Intake & Output 05/07/24 05/07/24 05/08/24 06:59 18:59 06:59 Output Total 1550 520 Balance -1550 -520 Output: Urine 1550 520 Other: Voiding Method Toilet Urinal - Exam Obese male NAD RRR CTAB Nontender nondistended - Labs CBC & Chem 7: 05/06/24 05:16 05/06/24 05:16 Assessment and Plan Plan: Continue with current medical regimen, pain control, protonix, encouarage ambulation. Continue ativan and NRT. Recheck CBC.
--- NOTE | 2024-05-08 08:51 | P.PN ---
Progress Note - Text Progress Note Date: 05/08/24 Orthopedic Spine History of present illness: Patient is a pleasant 68-year-old male who is seen and examined at the bedside following posterior lateral decompression and fusion performed Saturday. Patient was doing well yesterday but has had increased confusion over the night. He is confused and agitated at the bedside. He is able to answer questions and admits to his confusion. He states he was able to leave the hospital last night to go home to have a alliance party but was unsure how to get back to the hospital. The patient never left the hospital. He states he has had confusion like this previously due to urinary tract infection. He does continue to have some pain at his surgical sites at the lumbar spine. His lower extremity leg pain is better controlled. Currently does not complain of nausea, vomiting, fever, or chills. Patient states pain has been adequately controlled but continues to have some pain more significant at his lumbar spine. Patient is eating and voiding freely without difficulty. He denies fever or chills. His Burciaga catheter has been discontinued. He is voiding without difficulty. He is able to ambulate with the assistance of physical therapy. He has been able to work with physical therapy but is unable to ambulate much farther than to the door. He is utilizing a walker. He has a walker for home use. He continues to be seen and examined by medicine for his other medical diagnoses. He continues to have a central line in place. This will need to be discontinued by anesthesia. Physical Exam Lumbar Fusion: Status post surgical day number 4 Patient is awake, alert, and oriented 3 Vital signs stable Good chest excursion with deep inspiration and expiration Dorsiflexion, plantarflexion, and extensor hallucis longus positive sustained bilaterally No signs or symptoms of DVT; no calf pain; pneumatic cuffs intact bilateral lower extremities Optifoam dressings are clean, dry, and intact over the lumbar spine and right iliac crest; no erythema, purulence, or signs of infection Dressings are removed Neurovascularly intact bilaterally lower extremities Assessment: Status post L2-3 and L3-4 minimally invasive posterior lateral decompression and fusion with transforaminal lumbar interbody fusion L2-3 and L3-4 severe spinal stenosis Degenerative scoliosis Lumbar herniated nucleus pulposus Neurogenic claudication Lumbar facet spondylosis Low back pain Lower extremity radiculopathy Osteoporosis Acute onset confusion Hypertension Hyperlipidemia COPD Plan: 1. Ambulate as tolerated; work with Physical Therapy to increase mobilization 2. Continue pain control with IV and oral medications; will plan to begin weaning the patient off of IV narcotic medication in anticipation for discharge home in the next 1-2 days; could plan for discharge home as early as tomorrow, 05/09/2024. Currently I would like to hold Dilaudid IV. MAPS has been reviewed today, 05/08/2024, with an Overall Overdose Risk Score of 200. An "Opiod Start Talking" Form has been signed and placed in the patient's chart. A prescription has been written for codon 7.5 mg / 325 mg, 1-2 tabs, every 6 hours, as needed for pain. Prescriptions also sent for baclofen 10 mg 1 tab, 3 times daily, as needed for muscle spasm and Senokot-S, 1 tab, twice daily, as needed for constipation. Prescriptions are sent to the patient's regular pharmacy. 3. Dressings have been removed over the surgical sites of the lumbar spine and right iliac crest. Patient may shower without a dressing intact. 4. Medical management can continue to manage patient for patient's other medical diagnoses 5. Central line to be discontinued by anesthesia 6. Patient has had increased confusion over the night and into the morning. We will currently plan to obtain a urine analysis as the patient states he has had confusion like this previously with a urinary tract infection. We will also hold IV Dilaudid. 7. We will continue to follow the patient closely; depending on the patient's progress, we may plan for discharge home as early as tomorrow, 05/09/2024 8. Patient can follow-up with Brendon Noel PA-C or Dr. Des Dempsey at [facility] in 2-3 weeks following discharge
[2024-05-08 10:32] LABS: HCT 26.8 % (39.6-50.0); HGB 9.1 g/dL (13.0-17.0); MCH 31.5 pg (27.0-32.0); MCV 92.7 FL (80.0-97.0); Mean Platelet Volume 9.2 FL (9.5-12.2); NRBC Per 100 WBC 0 X 10*3/uL (0.00-0.01); Platelet Count 201 X 10*3/uL (140-440); RBC 2.89 X 10*6/uL (4.40-5.60); RDW 13.6 % (11.5-14.5); WBC 10.15 X 10*3/uL (4.50-10.00)
[2024-05-08] MEDS: ARIPiprazole 2 MG TAB PO SCH (11:10)
[2024-05-08 11:13] LABS: Appearance,Urine Clear (Clear); Bilirubin,Urine Negative (Negative); Blood,Urine Negative (Negative); Color,Urine Colorless; Glucose,Urine (UA) Negative (Negative); Ketones,Urine Negative (Negative); Leukocyte Esterase,Urine Negative (Negative); Nitrite,Urine Negative (Negative); Protein,Urine Trace (Negative); Specific Gravity,Urine 1.011 (1.001-1.035); Urobilinogen,Urine <2.0 mg/dL (<2.0)
[2024-05-08 12:07] LABS: African American GFR (CKD) >90 (>60 ml/min/1.73 sqM); Anion Gap 5 mmol/L; Blood Urea Nitrogen 9 mg/dL (9-20); Carbon Dioxide 26 mmol/L (22-30); Chloride 96 mmol/L (98-107); Glucose 104 mg/dL (74-99); Non-African American GFR(CKD) >90 (>60 ml/min/1.73 sqM); Potassium 4.4 mmol/L (3.5-5.1); Sodium 127 mmol/L (137-145)
[2024-05-08] MEDS ORDERED: LORazepam 0.5 MG TAB PO PRN (14:15)
[2024-05-08] MEDS: LORazepam 2 MG/ML INJ IV STA (14:33)
[2024-05-08] MEDS: SODIUM CHLORIDE 0.9% 1,000 ML IV SCH (14:36)
[2024-05-08] MEDS: LORazepam 2 MG/ML INJ IV PRN ×3 (16:22→21:42)
[2024-05-08] MEDS ORDERED: HALOPERIDOL LACTATE 5 MG/ML 1 ML VIAL IM PRN (20:39)
--- NOTE | 2024-05-08 20:58 | P.PN ---
Subjective Progress Note Date: 05/08/24 This is a 68-year-old gentleman with past medical history significant for degenerative scoliosis, severe spinal stenosis L2-3 L3-4, hernia nucleus pulposus L2-3 L3-4, neurogenic claudication, lower extreme radiculopathy, facet arthrosis, osteoporosis, low back pain status post laminectomy, decompression , Facet fusion ,transforaminal lumbar interbody fusion for 360 degree fusion, dissected me for decompression, L2-3 L3-4, postop day #1. Chest x-ray reporting lung volumes diminished, probable scattered basilar atelectasis. Incentive spirometer up to 1800 currently. Reports significant back pain throughout the night and this morning. Reports achiness of anterior right thigh. Denies numbness or tingling. patient also wears 1 L nasal cannula O2 at night/BiPAP. Denies chest pain, palpitations or shortness of breath. Currently maintaining O2 sats of mid 90s on 2 L nasal cannula. Hemoglobin 8.9, preop hemoglobin 12.2., Platelets 174, preop 310. MCV 98.9. Sodium 131, potassium 4.4, bicarb 24.3, BUN 5.7, creatinine 0.7 glucose 115. 05/06/24. Pt seen and evaluated at bedside, he continues to endorse significant low back pain which is slightly improved from yesterday. He has not yet ambulated with PT. He denies numbness, tingling, fever, chills. No shortness of breath. Hgb stable at 9.1 today. 05/07/24 Pt reports significant improvement to his pain, states it is still painful to stand and ambulate but better than yesterday. Denies nausea, constipation fever, chills. 05/08/24 Pt evaluated today, he is tearful this morning, complains of pain and frustration being in the hospital. Per nursing staff pt disoriented last night, scoring higher on CIWA scale. UA wnl. Objective - Vital Signs Vital signs: Vital Signs Temp 98.3 F 05/08/24 19:45 Pulse 105 H 05/08/24 19:45 Resp 16 05/08/24 13:02 BP 138/76 05/08/24 19:45 Pulse Ox 96 05/08/24 19:45 FiO2 Intake & Output 05/08/24 05/08/24 05/09/24 06:59 18:59 06:59 Other: Voiding Method Toilet Urinal # Voids 4 # Bowel Movements 1 - Labs CBC & Chem 7: 05/08/24 06:03 05/08/24 10:39 Labs: Abnormal Lab Results - Last 24 Hours (Table) 05/08/24 05/08/24 05/08/24 Range/Units 06:03 10:00 10:39 WBC 10.15 H (4.50-10.00) X 10*3/uL RBC 2.89 L (4.40-5.60) X 10*6/uL Hgb 9.1 L (13.0-17.0) g/dL Hct 26.8 L (39.6-50.0) % MPV 9.2 L (9.5-12.2) FL Sodium 127 L (137-145) mmol/L Chloride 96 L (98-107) mmol/L Glucose 104 H (74-99) mg/dL Urine Protein Trace H (Negative) Assessment and Plan Plan: Alcohol withdrawal with delerium Metabolic encephalopathy S/p lumbar decompression and fusion Continue with current medical regimen CIWA, pain control, protonix, encouarage ambulation. Supplement thiamine. Start seroquel qhs. Continue ativan and NRT
[2024-05-08] MEDS: QUEtiapine 50 MG TAB PO SCH (21:21)
[2024-05-09] MEDS: HALOPERIDOL LACTATE 5 MG/ML 1 ML VIAL IM ONE (03:07)
[2024-05-09] MEDS: LORazepam 2 MG/ML INJ IV PRN (09:14)
--- NOTE | 2024-05-09 10:23 | P.PN ---
Progress Note - Text Progress Note Date: 05/09/24 Postoperative day #5 Patient is seen and examined today at bedside. He had some benzodiazepine and is quite sleepy but breathing comfortably. He is not complaining of new pain. The patient has some pain around the surgical site as expected. Pain is being controlled with medication. Able to follow commands appropriately. He is still somewhat confused with his orientation today. His daughters at bedside His labs show hyponatremia yesterday Physical Exam Afebrile with stable vital signs He is still disoriented today but is able to follow commands. Abdomen is soft nontender. Chest has good excursion deep and space expiration The incision site is clean dry and intact. No erythema there is no purulence. Extremities have not had neurologic change from prior to surgery. Calves and thighs were soft nontender without evidence of DVT. Assessment/Plan Postoperative day #5 status post lumbar decompression and fusion for spinal stenosis lower EXTR radiculopathy and neurogenic claudication Altered mental status Hyponatremia Patient had been progressing physically and with his mobility as expected from the surgery. Yesterday the patient had significant confusion and was found to be hyponatremic. He is continue management in this regard as per medicine. We will continue to increase the patient's mobilization with therapy as he is able. We will continue pain control with oral or IV medications. He can continue to progress from a spine standpoint with his mobility if he is okay with medicine service. When he is cleared with medicine service it will be okay for discharge to home from an orthopedic standpoint we'll continue to follow patient closely.
[2024-05-09] MEDS: chlordiazePOXIDE 25 MG CAP PO SCH (16:50)
--- NOTE | 2024-05-09 19:07 | P.PN ---
Subjective This is a 68-year-old gentleman with past medical history significant for degenerative scoliosis, severe spinal stenosis L2-3 L3-4, hernia nucleus p ulposus L2-3 L3-4, neurogenic claudication, lower extreme radiculopathy, facet arthrosis, osteoporosis, low back pain status post laminectomy, decompression ,Facet fusion ,transforaminal lumbar interbody fusion for 360 degree fusion, dissected me for decompression, L2-3 L3-4, postop day #1. Chest x-ray reporting lung volumes diminished, probable scattered basilar atelectasis. Incentive spirometer up to 1800 currently. Reports significant back pain throughout the night and this morning. Reports achiness of anterior right thigh. Denies numbness or tingling. patient also wears 1 L nasal cannula O2 at night/BiPAP. Denies chest pain, palpitations or shortness of breath. Currently maintaining O2 sats of mid 90s on 2 L nasal cannula. Hemoglobin 8.9, preop hemoglobin 12.2., Platelets 174, preop 310. MCV 98.9. Sodium 131, potassium 4.4, bicarb 24.3, BUN 5.7, creatinine 0.7 glucose 115. 05/06/24. Pt seen and evaluated at bedside, he continues to endorse significant low back pain which is slightly improved from yesterday. He has not yet ambulated with PT. He denies numbness, tingling, fever, chills. No shortness of breath. Hgb stable at 9.1 today. 05/07/24 Pt reports significant improvement to his pain, states it is still painful to stand and ambulate but better than yesterday. Denies nausea, constipation fever, chills. 05/08/24 Pt evaluated today, he is tearful this morning, complains of pain and frustration being in the hospital. Per nursing staff pt disoriented last night, scoring higher on CIWA scale. UA wnl. 05/09 Patient awake alert looks calm but very tired. He answers questions appropriately but slowly. Also he is mildly confused, he has to be reminded he is in the hospital before he can say yes it is partly here on hospital. Denies specific complaint no chest pain or abdominal pain. Sitter at bedside His CIWA score is still high however is improving Will add Librium Also he is on aspirin and Plavix which helped for DVT prophylaxis as well and he is on IV hydration 100 mL/h of normal saline Review of systems CONSTITUTIONAL: No fever, no malaise, no fatigue. HEENT: No recent visual problems or hearing problems. Denied any sore throat. HEMATOLOGICAL: Denies any bleeding or petechiae. GENITOURINARY: Denies any burning micturition, frequency, or urgency. MUSCULOSKELETAL/RHEUMATOLOGICAL: Denies any joint pain, swelling, or any muscle pain. ENDOCRINE: Denies any polyuria or polydipsia. Active Medications Generic Name Dose Route Start Last Admin Trade Name Freq PRN Reason Stop Dose Admin Hydrocodone Bitart/Acetaminophen 1 each 05/05/24 11:15 Hydrocodone/Apap 7.5-325mg 1 Each Tab PO Q6HR PRN mild-moderate pain 1-5 Hydrocodone Bitart/Acetaminophen 2 each 05/05/24 11:21 05/09/24 14:52 Hydrocodone/Apap 7.5-325mg 1 Each Tab PO 2 each Q6HR PRN Administration moderate-severe pain 6-10 Albuterol/Ipratropium 3 ml 05/05/24 12:00 05/09/24 16:15 Ipratropium-Albuterol 3 Ml Neb INHALATION 3 ml RT-QID BHANU Administration Albuterol/Ipratropium 3 ml 05/05/24 10:18 Ipratropium-Albuterol 3 Ml Neb INHALATION RT-Q2H PRN Shortness Of Breath Or Wheezing Amitriptyline HCl 25 mg 05/04/24 21:00 05/08/24 21:19 Amitriptyline Hcl 25 Mg Tab PO 06/03/24 20:59 25 mg HS BHANU Administration Aripiprazole 2 mg 05/08/24 09:30 05/09/24 07:58 Aripiprazole 2 Mg Tab PO 2 mg DAILY BHANU Administration Aspirin 81 mg 05/05/24 09:00 05/09/24 07:57 Aspirin 81 Mg PO 06/04/24 08:59 81 mg DAILY BHANU Administration Atorvastatin Calcium 40 mg 05/05/24 09:00 05/09/24 07:57 Atorvastatin 40 Mg Tab PO 06/03/24 08:59 40 mg Q48H BHANU Administration Benzocaine/Menthol 1 each 05/04/24 12:17 Benzocaine/Menthol Lozeng 1 Each Lozenge MUCOUS MEM 06/03/24 12:16 Q4HR PRN Sore Throat Budesonide/Formoterol Fumarate 2 puff 05/05/24 10:19 05/09/24 08:30 Symbicort 80-4.5 Mcg Inhaler INHALATION Not Given RT-BID BHANU Bupropion HCl 150 mg 05/04/24 21:00 05/09/24 07:58 Bupropion Sr 150 Mg Tablet.Er PO 06/03/24 20:59 150 mg BID BHANU Administration Chlordiazepoxide HCl 25 mg 05/09/24 16:45 05/09/24 16:50 Chlordiazepoxide 25 Mg Cap PO 25 mg TID BHANU Administration Clopidogrel Bisulfate 75 mg 05/05/24 09:00 05/09/24 07:57 Clopidogrel 75 Mg Tab PO 06/04/24 08:59 75 mg DAILY BHANU Administration Cyclobenzaprine HCl 10 mg 05/04/24 12:18 05/08/24 04:03 Cyclobenzaprine 10 Mg Tab PO 06/03/24 12:17 10 mg TID PRN Administration Muscle Spasm Dicyclomine HCl 10 mg 05/04/24 16:00 05/09/24 14:53 Dicyclomine 10 Mg Cap PO 06/03/24 15:59 10 mg TID BHANU Administration Folic Acid 1 mg 05/05/24 10:30 05/09/24 07:57 Folic Acid 1 Mg Tab PO 1 mg DAILY BHANU Administration Hydromorphone HCl 0.5 mg 05/04/24 12:17 Hydromorphone 0.5 Mg/0.5 Ml Syringe IVP 06/03/24 12:16 Q4HR PRN Pain Hydromorphone HCl 1 mg 05/04/24 12:17 05/08/24 05:27 Hydromorphone 1 Mg/Ml 1 Ml Syringe IVP 06/03/24 12:16 1 mg Q4HR PRN Administration Pain Sodium Chloride 1,000 mls @ 100 mls/hr 05/08/24 14:15 05/09/24 09:14 Saline 0.9% IV 100 mls/hr .Q10H BHANU Administration Lidocaine HCl 0.1 ml 05/04/24 06:17 Lidocaine 1% (10mg/Ml) For Iv Start INTRADERMA 06/03/24 06:16 PER PROTOCOL PRN IV Start Lorazepam 1 mg 05/05/24 10:21 05/09/24 05:40 Lorazepam 2 Mg/Ml Inj IV 1 mg Q1HR PRN Administration CIWA 10 to 15 Lorazepam 1 mg 05/05/24 10:21 05/09/24 14:53 Lorazepam 2 Mg/Ml Inj IV 1 mg Q2HR PRN Administration CIWA 8 or 9 Lorazepam 0.5 mg 05/08/24 14:15 Lorazepam 0.5 Mg Tab PO Q4HR PRN Ciwa 4 To 5 Lorazepam 1 mg 05/08/24 14:15 Lorazepam 1 Mg Tab PO Q4HR PRN Ciwa 6 To 7 Lorazepam 2 mg 05/08/24 14:15 Lorazepam 1 Mg Tab PO Q2HR PRN Ciwa 10 or greater Lorazepam 2 mg 05/08/24 14:15 Lorazepam 1 Mg Tab PO Q3HR PRN Ciwa 8 To 9 Losartan Potassium 100 mg 05/05/24 09:00 05/09/24 07:56 Losartan 50 Mg Tab PO 06/04/24 08:59 100 mg DAILY BHANU Administration Losartan Potassium 50 mg 05/04/24 21:00 05/08/24 21:19 Losartan 50 Mg Tab PO 06/03/24 20:59 50 mg HS BHANU Administration Metoprolol Succinate 50 mg 05/04/24 21:00 05/09/24 07:57 Metoprolol Succinate (Er) 50 Mg Tab.Er.24h PO 06/03/24 20:59 50 mg BID BHANU Administration Nicotine 1 patch 05/05/24 20:00 05/08/24 21:18 Nicotine 21mg/24hr Patch TRANSDERM 1 patch DAILY@2000 BHANU Administration Ondansetron HCl 4 mg 05/04/24 12:18 Ondansetron 4 Mg/2 Ml Vial IVP 06/03/24 12:17 Q8HR PRN Nausea And Vomiting Pantoprazole Sodium 40 mg 05/05/24 07:30 05/09/24 07:57 Pantoprazole 40 Mg Tablet PO 40 mg DAILY@0730 BHANU Administration Quetiapine Fumarate 50 mg 05/08/24 21:00 05/08/24 21:21 Quetiapine 50 Mg Tab PO 50 mg HS BHANU Administration Senna/Docusate Sodium 1 each 05/05/24 09:00 05/09/24 07:57 Sennosides-Docusate Sodium 1 Each Tab PO 06/04/24 08:59 1 each DAILY BHANU Administration Thiamine HCl 100 mg 05/05/24 09:00 05/09/24 07:57 Thiamine 100 Mg Tab PO 100 mg DAILY BHANU Administration Objective - Vital Signs Vital signs: Vital Signs Temp 98.2 F 05/09/24 08:00 Pulse 75 05/09/24 12:20 Resp 17 05/09/24 08:00 BP 180/81 05/09/24 08:00 Pulse Ox 95 05/09/24 08:00 FiO2 Intake & Output 05/08/24 05/09/24 05/09/24 18:59 06:59 18:59 Other: # Voids 4 2 - Exam -GENERAL: The patient is alert and oriented x2-3, not in any acute distress. Well developed, well nourished. Generally weak HEENT: Pupils are round and equally reacting to light. EOMI. No scleral icterus. No conjunctival pallor. Normocephalic, atraumatic. No pharyngeal erythema. No thyromegaly. CARDIOVASCULAR: S1 and S2 present. No murmurs, rubs, or gallops. PULMONARY: Chest is clear to auscultation, no wheezing , no crackles. ABDOMEN: Soft, nontender, nondistended, normoactive bowel sounds. No palpable organomegaly. MUSCULOSKELETAL: No joint swelling or deformity. -EXTREMITIES: No cyanosis, clubbing, or pedal edema. Mild tremor of the upper extremities NEUROLOGICAL: Gross neurological examination did not reveal any focal deficits. SKIN: No rashes. no petechiae. - Labs CBC & Chem 7: 05/08/24 06:03 05/08/24 10:39 Assessment and Plan Assessment: Spondylosis with severe spinal stenosis of L2-L3 and L3-L4 with neurogenic claudication and lower extremity radiculopathy, s/p laminectomy and decompression of L2-L3 and L3-L4 on 05/04 Severe alcohol withdrawal, delirium tremens Alcohol use disorder Chronic hyponatremia Metabolic and toxic encephalopathy secondary to his alcohol problem Plan: Continue CIWA protocol Continue with thiamine Continue with normal saline Continue with aspirin and Plavix Continue with antihypertensive medication Add Librium 25 mg 3 times daily He is on Seroquel 50 mg at bedtime Sitter at bedside for safety Labs and medication were reviewed.. Continue same treatment. Continue with symptomatic treatment. Resume home medication. Monitor labs and vitals. DVT a nd GI prophylaxis. Further recommendations as per clinical course of the patient DVT prophylaxis: DAPT GI Prophylaxis: Protonix Prognosis is guarded
[2024-05-09] MEDS: LORazepam 1 MG TAB PO PRN (21:36)
[2024-05-09] MEDS: SODIUM CHLORIDE TAB 1 GM TAB PO SCH (22:16)
[2024-05-10 09:28] LABS: Basophils # (A) 0.05 X 10*3/uL (0.00-0.10); Basophils % (A) 0.7 %; Eosinophils # (A) 0.34 X 10*3/uL (0.04-0.35); HCT 26.3 % (39.6-50.0); HGB 8.7 g/dL (13.0-17.0); Lymphocytes % (A) 13.2 %; MCH 31.1 pg (27.0-32.0); MCHC 33.1 g/dL (32.0-37.0); MCV 93.9 FL (80.0-97.0); Monocytes # (A) 0.89 X 10*3/uL (0.20-1.00); Monocytes % (A) 13.1 %; NRBC Per 100 WBC 0 X 10*3/uL (0.00-0.01); Neutrophils % (A) 67.6 %; Platelet Count 249 X 10*3/uL (140-440); RDW 13.5 % (11.5-14.5); WBC 6.81 X 10*3/uL (4.50-10.00)
[2024-05-10 10:32] LABS: ALT 32 U/L (10-49); AST 28 U/L (14-35); Albumin 3.1 g/dL (3.8-4.9); Albumin/Globulin Ratio 1.55 Ratio (1.60-3.17); Alkaline Phosphatase 47 U/L (41-126); BUN/Creat Ratio 13.17 Ratio (12.00-20.00); Bilirubin, Conjugated <0.20 mg/dL (0.20-0.40); Bilirubin,Unconjugated >0 mg/dL (0.20-1.00); Blood Urea Nitrogen 7.9 mg/dL (9.0-27.0); Calcium 8.9 mg/dL (8.7-10.3); Carbon Dioxide 22.8 mmol/L (21.6-31.8); Chloride 101 mmol/L (96-109); Glucose 81 mg/dL (70-110); Magnesium 1.3 mg/dL (1.5-2.4); Potassium 3.8 mmol/L (3.5-5.5); Sodium 133 mmol/L (135-145); Total Bilirubin 0.2 mg/dL (0.3-1.2); Total Protein 5.1 g/dL (6.2-8.2)
--- NOTE | 2024-05-10 10:42 | P.PN ---
Progress Note - Text Progress Note Date: 05/10/24 Postoperative day #6 Patient is seen and examined today at bedside. The patient has some pain around the surgical site as expected. His mentation is more clear today. He is following commands and answering questions appropriately. Pain is being controlled with medication. He denies any new changes in his lower extremities. He says his legs are doing well. Physical Exam Afebrile with stable vital signs Abdomen is soft nontender. Chest has good excursion deep and space expiration The incision site is clean dry and intact. No erythema there is no purulence. Extremities have not had neurologic change from prior to surgery. He has sustained dorsiflexion plantarflexion EHL intact Calves and thighs were soft nontender without evidence of DVT. Assessment/Plan Postoperative day #6 status post decompression fusion lumbar spine for his spinal stenosis with lower extremity radiculopathy Altered mental status Patient is progressing slowly from the surgery in terms of his mobility. We have had some difficulty with his pain control, but this seems to be stabilizing. He will continue pain control with oral medication. It would be okay for the patient to shower with his waterproof dressing intact We will continue to increase the patient's mobilization with therapy. The patient's mental status seems to be stabilizing to some degree. He will continue his management as per medicine. He still has a sitter at bedside which I think is appropriate. If he continues to make progress he may be stable for home in the next day or 2. He is stable from orthopedic spine standpoint when he is cleared with medicine. We will continue pain control with oral medications. We'll continue to follow patient closely.
[2024-05-10] MEDS: LORazepam 1 MG TAB PO PRN (12:34)
[2024-05-10] MEDS: MAGNESIUM SULFATE-D5W PMX 1 GM in DEXTROSE/WATER 1 100ML.BAG IVPB SCH (12:34)
--- NOTE | 2024-05-10 18:04 | P.PN ---
Subjective This is a 68-year-old gentleman with past medical history significant for degenerative scoliosis, severe spinal stenosis L2-3 L3-4, hernia nucleus p ulposus L2-3 L3-4, neurogenic claudication, lower extreme radiculopathy, facet arthrosis, osteoporosis, low back pain status post laminectomy, decompression ,Facet fusion ,transforaminal lumbar interbody fusion for 360 degree fusion, dissected me for decompression, L2-3 L3-4, postop day #1. Chest x-ray reporting lung volumes diminished, probable scattered basilar atelectasis. Incentive spirometer up to 1800 currently. Reports significant back pain throughout the night and this morning. Reports achiness of anterior right thigh. Denies numbness or tingling. patient also wears 1 L nasal cannula O2 at night/BiPAP. Denies chest pain, palpitations or shortness of breath. Currently maintaining O2 sats of mid 90s on 2 L nasal cannula. Hemoglobin 8.9, preop hemoglobin 12.2., Platelets 174, preop 310. MCV 98.9. Sodium 131, potassium 4.4, bicarb 24.3, BUN 5.7, creatinine 0.7 glucose 115. 05/06/24. Pt seen and evaluated at bedside, he continues to endorse significant low back pain which is slightly improved from yesterday. He has not yet ambulated with PT. He denies numbness, tingling, fever, chills. No shortness of breath. Hgb stable at 9.1 today. 05/07/24 Pt reports significant improvement to his pain, states it is still painful to stand and ambulate but better than yesterday. Denies nausea, constipation fever, chills. 05/08/24 Pt evaluated today, he is tearful this morning, complains of pain and frustration being in the hospital. Per nursing staff pt disoriented last night, scoring higher on CIWA scale. UA wnl. 05/09 Patient awake alert looks calm but very tired. He answers questions appropriately but slowly. Also he is mildly confused, he has to be reminded he is in the hospital before he can say yes it is partly here on hospital. Denies specific complaint no chest pain or abdominal pain. Sitter at bedside His CIWA score is still high however is improving Will add Librium Also he is on aspirin and Plavix which helped for DVT prophylaxis as well and he is on IV hydration 100 mL/h of normal saline 05/10 Patient withdrawal symptoms from alcohol is improving His CIWA score currently 2-3 are slightly higher but overall coming down. Also patient more calm. Restart tapering Librium over the next 2 days Although he is eating more, we lowered her IV fluid normal saline to 50 mL/h. His hyponatremia is improving and currently 133 Surgery team following for his postop care and overall his doing well, when I saw the patient his pain looks controlled Sitter remains at bedside Hypomagnesemia has been replaced Objective - Vital Signs Vital signs: Vital Signs Temp 97.9 F 05/10/24 13:05 Pulse 92 05/10/24 13:05 Resp 18 05/10/24 13:05 BP 151/79 05/10/24 13:05 Pulse Ox 95 05/10/24 13:05 FiO2 Intake & Output 05/09/24 05/10/24 05/10/24 18:59 06:59 18:59 Intake Total 800 Balance 800 Intake: Intake, IV Titration 800 Amount Sodium Chloride 0.9% 1, 800 000 ml @ 100 mls/hr IV . Q10H [facility] Rx#:[id number] Other: # Voids 1 1 # Bowel Movements 1 - Exam -GENERAL: The patient is alert and oriented x2-3, not in any acute distress. Well developed, well nourished. Generally weak HEENT: Pupils are round and equally reacting to light. EOMI. No scleral icterus. No conjunctival pallor. Normocephalic, atraumatic. No pharyngeal erythema. No thyromegaly. CARDIOVASCULAR: S1 and S2 present. No murmurs, rubs, or gallops. PULMONARY: Chest is clear to auscultation, no wheezing , no crackles. ABDOMEN: Soft, nontender, nondistended, normoactive bowel sounds. No palpable organomegaly. MUSCULOSKELETAL: No joint swelling or deformity. -EXTREMITIES: No cyanosis, clubbing, or pedal edema. Mild tremor of the upper extremities NEUROLOGICAL: Gross neurological examination did not reveal any focal deficits. SKIN: No rashes. no petechiae. - Labs CBC & Chem 7: 05/10/24 06:30 05/10/24 06:30 Labs: Abnormal Lab Results - Last 24 Hours (Table) 11/24/24 11/24/24 Range/Units 06:30 06:30 RBC 2.80 L (4.40-5.60) X 10*6/uL Hgb 8.7 L (13.0-17.0) g/dL Hct 26.3 L (39.6-50.0) % MPV 9.0 L (9.5-12.2) FL Sodium 133 L (135-145) mmol/L BUN 7.9 L (9.0-27.0) mg/dL Magnesium 1.3 L (1.5-2.4) mg/dL Total Bilirubin 0.2 L (0.3-1.2) mg/dL Unconjugated Bilirubin >0 L (0.20-1.00) mg/dL Total Protein 5.1 L (6.2-8.2) g/dL Albumin 3.1 L (3.8-4.9) g/dL Albumin/Globulin Ratio 1.55 L (1.60-3.17) Ratio Assessment and Plan Assessment: Spondylosis with severe spinal stenosis of L2-L3 and L3-L4 with neurogenic claudication and lower extremity radiculopathy, s/p laminectomy and decompression of L2-L3 and L3-L4 on 05/04 Severe alcohol withdrawal, delirium tremens Alcohol use disorder Chronic hyponatremia Metabolic and toxic encephalopathy secondary to his alcohol problem Plan: Continue CIWA protocol Continue with thiamine Continue with normal saline, lower rate to 50 mL/h Continue with aspirin and Plavix Continue with antihypertensive medication A Taper Librium He is on Seroquel 50 mg at bedtime Sitter at bedside for safety Labs and medication were reviewed.. Continue same treatment. Continue with symptomatic treatment. Resume home medication. Monitor labs and vitals. DVT and GI prophylaxis. Further recommendations as per clinical course of the manfred ent DVT prophylaxis: DAPT GI Prophylaxis: Protonix Prognosis is guarded
[2024-05-10] MEDS: bisacodyL 5 MG TABLET.DR PO PRN (23:52)
[2024-05-11] MEDS: LORazepam 2 MG/ML INJ IV STA (02:15)
--- NOTE | 2024-05-11 08:31 | P.PN ---
Progress Note - Text Progress Note Date: 05/11/24 Orthopedic Spine History of present illness: Patient is a pleasant 68-year-old male who is seen and examined at the bedside following posterior lateral decompression and fusion performed last 05/04/2024. Patient was experiencing increased confusion this past and Saturday which has continued over the weekend. He has had improvement of his confusion. He is being managed by medicine for confusion due to alcohol withdrawal. Patient states at the bedside he does continue to have some confusion but also states his confusion has been improving. Nursing states he did have some difficulty with the patient over the evening as he was kicking throughout the night. He does have a sitter at the bedside. In regards to his lumbar spine, his pain is well-controlled. He does not complain of any lower extremity weakness or radiculopathy bilaterally. Currently does not complain of nausea, vomiting, fever, or chills. Patient is eating and voiding freely without difficulty. He denies fever or chills. His [place] catheter has been discontinued. He is voiding without difficulty. He continues to be seen and examined by medicine for his other medical diagnoses. His central line has been discontinued. Physical Exam Lumbar Fusion: Status post surgical day number 7 Patient is awake, alert, and oriented 3 Vital signs stable Good chest excursion with deep inspiration and expiration Dorsiflexion, plantarflexion, and extensor hallucis longus positive sustained bilaterally No signs or symptoms of DVT; no calf pain; pneumatic cuffs intact bilateral lower extremities Dressings have been removed over the lumbar spine and right iliac crest; no erythema, purulence, or signs of infection Some skin irritation around the surgical site at the left lumbar spine without active drainage or obvious sign of infection Neurovascularly intact bilaterally lower extremities Assessment: Status post L2-3 and L3-4 minimally invasive posterior lateral decompression and fusion with transforaminal lumbar interbody fusion L2-3 and L3-4 severe spinal stenosis Degenerative scoliosis Lumbar herniated nucleus pulposus Neurogenic claudication Lumbar facet spondylosis Low back pain Lower extremity radiculopathy Osteoporosis Acute onset confusion due to alcohol withdrawal Hypertension Hyperlipidemia COPD Plan: 1. Ambulate as tolerated; work with Physical Therapy to increase mobilization 2. Continue pain control with oral medications. MAPS has been reviewed on 05/08/2024 with an Overall Overdose Risk Score of 200. An "Opiod Start Talking" Form has been signed and placed in the patient's chart. A prescription has been written for codon 7.5 mg / 325 mg, 1-2 tabs, every 6 hours, as needed for pain. Prescriptions also sent for baclofen 10 mg 1 tab, 3 times daily, as needed for muscle spasm and Senokot-S, 1 tab, twice daily, as needed for constipation. Prescriptions are sent to the patient's regular pharmacy. 3. Dressings have been removed over the surgical sites of the lumbar spine and right iliac crest. Patient may shower without a dressing intact. Dressing will be reapplied over the left lower lumbar incision site due to skin irritation. I see no active drainage or obvious sign of infection. 4. Medical management can continue to manage patient for patient's other medical diagnoses including confusion due to alcohol withdrawal 5. Patient has had increased confusion over the night and into the morning. We will currently plan to obtain a urine analysis as the patient states he has had confusion like this previously with a urinary tract infection. We will also hold IV Dilaudid. 8. We will continue to follow the patient closely; depending on the patient's progress, we may plan for discharge home as early as tomorrow, 05/12/2024, if cleared by medicine. Patient can follow-up with Brendon Noel PA-C or Dr. Des Dempsey at [facility] in 2-3 weeks following discharge The patient is seen and examined bedside. His is present with him. I agree with the above. He is continuing medical management in terms of his withdrawal and confusion.
[2024-05-11] MEDS: LORazepam 1 MG TAB PO PRN (08:54)
[2024-05-11] MEDS: chlordiazePOXIDE 25 MG CAP PO SCH (08:55)
[2024-05-11 09:10] LABS: Basophils # (A) 0.03 X 10*3/uL (0.00-0.10); Basophils % (A) 0.4 %; Eosinophils # (A) 0.21 X 10*3/uL (0.04-0.35); Eosinophils % (A) 3.1 %; HCT 24.9 % (39.6-50.0); HGB 8.2 g/dL (13.0-17.0); Lymphocytes # (A) 1.01 X 10*3/uL (0.90-5.00); Lymphocytes % (A) 14.7 %; MCHC 32.9 g/dL (32.0-37.0); MCV 97.3 FL (80.0-97.0); Mean Platelet Volume 9.4 FL (9.5-12.2); Monocytes # (A) 0.84 X 10*3/uL (0.20-1.00); Monocytes % (A) 12.3 %; NRBC Per 100 WBC 0 X 10*3/uL (0.00-0.01); Neutrophils # (A) 4.74 X 10*3/uL (1.80-7.70); Neutrophils % (A) 69.2 %; Platelet Count 272 X 10*3/uL (140-440); RBC 2.56 X 10*6/uL (4.40-5.60); RDW 13.5 % (11.5-14.5); WBC 6.85 X 10*3/uL (4.50-10.00)
[2024-05-11 09:23] LABS: BUN/Creat Ratio 11.17 Ratio (12.00-20.00); Blood Urea Nitrogen 6.7 mg/dL (9.0-27.0); Calcium 8.7 mg/dL (8.7-10.3); Carbon Dioxide 21.5 mmol/L (21.6-31.8); Chloride 104 mmol/L (96-109); Glucose 89 mg/dL (70-110); Magnesium 1.6 mg/dL (1.5-2.4); Potassium 3.9 mmol/L (3.5-5.5); Sodium 136 mmol/L (135-145)
--- NOTE | 2024-05-11 21:13 | P.PN ---
Subjective Progress Note Date: 05/11/24 This is a 68-year-old gentleman with past medical history significant for degenerative scoliosis, severe spinal stenosis L2-3 L3-4, hernia nucleus pulposus L2-3 L3-4, neurogenic claudication, lower extreme radiculopathy, facet arthrosis, osteoporosis, low back pain status post laminectomy, decompression ,F acet fusion ,transforaminal lumbar interbody fusion for 360 degree fusion, dissected me for decompression, L2-3 L3-4, postop day #1. Chest x-ray reporting lung volumes diminished, probable scattered basilar atelectasis. Incentive spirometer up to 1800 currently. Reports significant back pain throughout the night and this morning. Reports achiness of anterior right thigh. Denies numbness or tingling. patient also wears 1 L nasal cannula O2 at night/BiPAP. Denies chest pain, palpitations or shortness of breath. Currently maintaining O2 sats of mid 90s on 2 L nasal cannula. Hemoglobin 8.9, preop hemoglobin 12.2., Platelets 174, preop 310. MCV 98.9. Sodium 131, potassium 4.4, bicarb 24.3, BUN 5.7, creatinine 0.7 glucose 115. 05/06/24. Pt seen and evaluated at bedside, he continues to endorse significant low back pain which is slightly improved from yesterday. He has not yet ambulated with PT. He denies numbness, tingling, fever, chills. No shortness of breath. Hgb stable at 9.1 today. 05/07/24 Pt reports significant improvement to his pain, states it is still painful to stand and ambulate but better than yesterday. Denies nausea, constipation fever, chills. 05/08/24 Pt evaluated today, he is tearful this morning, complains of pain and frustration being in the hospital. Per nursing staff pt disoriented last night, scoring higher on CIWA scale. UA wnl. 05/09 Patient awake alert looks calm but very tired. He answers questions appropriately but slowly. Also he is mildly confused, he has to be reminded he is in the hospital before he can say yes it is partly here on hospital. Denies specific complaint no chest pain or abdominal pain. Sitter at bedside His CIWA score is still high however is improving Will add Librium Also he is on aspirin and Plavix which helped for DVT prophylaxis as well and he is on IV hydration 100 mL/h of normal saline 05/10 Patient withdrawal symptoms from alcohol is improving His CIWA score currently 2-3 are slightly higher but overall coming down. Also patient more calm. Restart tapering Librium over the next 2 days Although he is eating more, we lowered her IV fluid normal saline to 50 mL/h. His hyponatremia is improving and currently 133 Surgery team following for his postop care and overall his doing well, when I saw the patient his pain looks controlled Sitter remains at bedside Hypomagnesemia has been replaced 05/11/24 Pt was again confused overnight and became anxious but is improving per nursing. He continues on CIWA as well as with librium. He reports well controlled pain this morning, denies difficulty with balance, fever, chills. Objective - Vital Signs Vital signs: Vital Signs Temp 97.7 F 05/11/24 19:42 Pulse 83 05/11/24 19:42 Resp 14 05/11/24 19:42 BP 191/92 05/11/24 19:42 Pulse Ox 97 05/11/24 19:42 FiO2 Intake & Output 05/11/24 05/11/24 05/12/24 06:59 18:59 06:59 Other: # Voids 2 1 2 - Exam Gen: Obese male NAD CV: RRR Lungs: CTAB Abd: Nontender nondistended - Labs CBC & Chem 7: 05/11/24 03:30 05/11/24 03:30 Labs: Abnormal Lab Results - Last 24 Hours (Table) 05/11/24 05/11/24 Range/Units 03:30 03:30 RBC 2.56 L (4.40-5.60) X 10*6/uL Hgb 8.2 L (13.0-17.0) g/dL Hct 24.9 L (39.6-50.0) % MCV 97.3 H (80.0-97.0) FL MPV 9.4 L (9.5-12.2) FL Carbon Dioxide 21.5 L (21.6-31.8) mmol/L BUN 6.7 L (9.0-27.0) mg/dL BUN/Creatinine Ratio 11.17 L (12.00-20.00) Ratio Assessment and Plan Plan: Alcohol withdrawal with delerium Metabolic encephalopathy S/p lumbar decompression and fusion Continue with current medical regimen CIWA, pain control, protonix. Continue seroquel and librium. Wean librium on discharge
[2024-05-11] MEDS: amLODIPine 5 MG TAB PO STA (22:23)
[2024-05-12] MEDS: chlordiazePOXIDE 25 MG CAP PO SCH (08:35)
--- NOTE | 2024-05-12 12:09 | P.PN ---
Progress Note - Text Progress Note Date: 05/12/24 Postoperative day #8 Patient is seen and examined today at bedside. He is comfortable and minimally agitated in bed. He is answering questions appropriately and O x 3. The patient has some pain around the surgical site as expected. Pain is being controlled with medication. He is still requiring a number of sedation medications at night for his agitation. Sitter is at bedside. Physical Exam Afebrile with stable vital signs Abdomen is soft nontender. Chest has good excursion deep and space expiration The incision site is clean dry and intact. No erythema there is no purulence. There is no drainage or erythema Extremities have not had neurologic change from prior to surgery. He has good motion throughout his extremities Calves and thighs were soft nontender without evidence of DVT. Assessment/Plan Postoperative day #8 status post decompression fusion lumbar spine for his s anna stenosis and lower extreme radiculopathy Altered mental status likely with withdrawal and agitation The patient's lumbar spine appears to be healing stable. It is okay for him to mobilize with physical therapy. We will continue to increase the patient's mobilization with therapy. We will continue pain control with oral medications. In terms of his agitation he has worsening agitation in the evenings. He is requiring a number of medications for this. This seems to be stabilizing to a small degree but he is still having difficulty. I would defer that continued management with medicine. We need to see if he would be a candidate for discharge to home with home health versus the possibility of alf. From an orthopedic spine standpoint it is okay for the patient to increase his mobility and to be discharged when he is stable from medicine standpoint. We'll continue to follow patient closely.
--- NOTE | 2024-05-12 19:44 | P.PN ---
Subjective Progress Note Date: 05/12/24 This is a 68-year-old gentleman with past medical history significant for degenerative scoliosis, severe spinal stenosis L2-3 L3-4, hernia nucleus pulposus L2-3 L3-4, neurogenic claudication, lower extreme radiculopathy, facet arthrosis, osteoporosis, low back pain status post laminectomy, decompression ,F acet fusion ,transforaminal lumbar interbody fusion for 360 degree fusion, dissected me for decompression, L2-3 L3-4, postop day #1. Chest x-ray reporting lung volumes diminished, probable scattered basilar atelectasis. Incentive spirometer up to 1800 currently. Reports significant back pain throughout the night and this morning. Reports achiness of anterior right thigh. Denies numbness or tingling. patient also wears 1 L nasal cannula O2 at night/BiPAP. Denies chest pain, palpitations or shortness of breath. Currently maintaining O2 sats of mid 90s on 2 L nasal cannula. Hemoglobin 8.9, preop hemoglobin 12.2., Platelets 174, preop 310. MCV 98.9. Sodium 131, potassium 4.4, bicarb 24.3, BUN 5.7, creatinine 0.7 glucose 115. 05/06/24. Pt seen and evaluated at bedside, he continues to endorse significant low back pain which is slightly improved from yesterday. He has not yet ambulated with PT. He denies numbness, tingling, fever, chills. No shortness of breath. Hgb stable at 9.1 today. 05/07/24 Pt reports significant improvement to his pain, states it is still painful to stand and ambulate but better than yesterday. Denies nausea, constipation fever, chills. 05/08/24 Pt evaluated today, he is tearful this morning, complains of pain and frustration being in the hospital. Per nursing staff pt disoriented last night, scoring higher on CIWA scale. UA wnl. 05/09 Patient awake alert looks calm but very tired. He answers questions appropriately but slowly. Also he is mildly confused, he has to be reminded he is in the hospital before he can say yes it is partly here on hospital. Denies specific complaint no chest pain or abdominal pain. Sitter at bedside His CIWA score is still high however is improving Will add Librium Also he is on aspirin and Plavix which helped for DVT prophylaxis as well and he is on IV hydration 100 mL/h of normal saline 05/10 Patient withdrawal symptoms from alcohol is improving His CIWA score currently 2-3 are slightly higher but overall coming down. Also patient more calm. Restart tapering Librium over the next 2 days Although he is eating more, we lowered her IV fluid normal saline to 50 mL/h. His hyponatremia is improving and currently 133 Surgery team following for his postop care and overall his doing well, when I saw the patient his pain looks controlled Sitter remains at bedside Hypomagnesemia has been replaced 05/11/24 Pt was again confused overnight and became anxious but is improving per nursing. He continues on CIWA as well as with librium. He reports well controlled pain this morning, denies difficulty with balance, fever, chills. 05/12/24 Pt is feeling well this morning, he is oriented and reports mild anxiety about being in the hospital but is otherwise feeling well. Surgical pain is controlled. Per nursing he became confused and tried to get up out of bed overnight but was redirectable. Objective - Vital Signs Vital signs: Vital Signs Temp 97.4 F L 05/12/24 13:50 Pulse 73 05/12/24 13:50 Resp 17 05/12/24 13:50 BP 152/76 05/12/24 13:50 Pulse Ox 95 05/12/24 13:50 FiO2 Intake & Output 05/12/24 05/12/24 05/13/24 06:59 18:59 06:59 Intake Total 1620 Balance 1620 Intake: Oral 1620 Other: Voiding Method Toilet # Voids 4 3 # Bowel Movements 3 - Exam Gen: Obese male NAD CV: RRR Lungs: CTAB Abd: Nontender nondistended - Labs CBC & Chem 7: 05/11/24 03:30 05/11/24 03:30 Assessment and Plan Plan: Alcohol withdrawal with delerium Metabolic encephalopathy S/p lumbar decompression and fusion Continue with current medical regimen CIWA, pain control, protonix. Continue seroquel and librium. Wean librium on discharge. Discussed with nursing will plan to discontinue 1:1 sitter as long as he remains oriented and appropriate through the evening
[2024-05-13 07:37] VITALS: BP 159/76; RESP 19; TEMP 97.8
[2024-05-13 12:08] VITALS: PULSE 82
--- NOTE | 2024-05-13 13:26 | P.PN ---
Subjective Progress Note Date: 05/13/24 This is a 68-year-old gentleman with past medical history significant for degenerative scoliosis, severe spinal stenosis L2-3 L3-4, hernia nucleus pulposus L2-3 L3-4, neurogenic claudication, lower extreme radiculopathy, facet arthrosis, osteoporosis, low back pain status post laminectomy, decompression ,F acet fusion ,transforaminal lumbar interbody fusion for 360 degree fusion, dissected me for decompression, L2-3 L3-4, postop day #1. Chest x-ray reporting lung volumes diminished, probable scattered basilar atelectasis. Incentive spirometer up to 1800 currently. Reports significant back pain throughout the night and this morning. Reports achiness of anterior right thigh. Denies numbness or tingling. patient also wears 1 L nasal cannula O2 at night/BiPAP. Denies chest pain, palpitations or shortness of breath. Currently maintaining O2 sats of mid 90s on 2 L nasal cannula. Hemoglobin 8.9, preop hemoglobin 12.2., Platelets 174, preop 310. MCV 98.9. Sodium 131, potassium 4.4, bicarb 24.3, BUN 5.7, creatinine 0.7 glucose 115. 05/06/24. Pt seen and evaluated at bedside, he continues to endorse significant low back pain which is slightly improved from yesterday. He has not yet ambulated with PT. He denies numbness, tingling, fever, chills. No shortness of breath. Hgb stable at 9.1 today. 05/07/24 Pt reports significant improvement to his pain, states it is still painful to stand and ambulate but better than yesterday. Denies nausea, constipation fever, chills. 05/08/24 Pt evaluated today, he is tearful this morning, complains of pain and frustration being in the hospital. Per nursing staff pt disoriented last night, scoring higher on CIWA scale. UA wnl. 05/09 Patient awake alert looks calm but very tired. He answers questions appropriately but slowly. Also he is mildly confused, he has to be reminded he is in the hospital before he can say yes it is partly here on hospital. Denies specific complaint no chest pain or abdominal pain. Sitter at bedside His CIWA score is still high however is improving Will add Librium Also he is on aspirin and Plavix which helped for DVT prophylaxis as well and he is on IV hydration 100 mL/h of normal saline 05/10 Patient withdrawal symptoms from alcohol is improving His CIWA score currently 2-3 are slightly higher but overall coming down. Also patient more calm. Restart tapering Librium over the next 2 days Although he is eating more, we lowered her IV fluid normal saline to 50 mL/h. His hyponatremia is improving and currently 133 Surgery team following for his postop care and overall his doing well, when I saw the patient his pain looks controlled Sitter remains at bedside Hypomagnesemia has been replaced 05/11/24 Pt was again confused overnight and became anxious but is improving per nursing. He continues on CIWA as well as with librium. He reports well controlled pain this morning, denies difficulty with balance, fever, chills. 05/12/24 Pt is feeling well this morning, he is oriented and reports mild anxiety about being in the hospital but is otherwise feeling well. Surgical pain is controlled. Per nursing he became confused and tried to get up out of bed overnight but was redirectable. 05/13/24 Pt seen and evaluated at bedside this morning, he is feeling well, denies anxiety and states he slept well. He is ambulating. Per nursing staff he did not have any agitation or confusion overnight Objective - Vital Signs Vital signs: Vital Signs Temp 97.8 F 05/13/24 07:20 Pulse 82 05/13/24 12:08 Resp 19 05/13/24 08:00 BP 159/76 05/13/24 07:20 Pulse Ox 91 L 05/13/24 07:20 FiO2 Intake & Output 05/12/24 05/13/24 05/13/24 18:59 06:59 18:59 Intake Total 1180 Balance 1180 Intake: Oral 1180 Other: Voiding Method Toilet # Voids 3 6 - Exam Gen: Obese male NAD CV: RRR Lungs: CTAB Abd: Nontender nondistended - Labs CBC & Chem 7: 05/11/24 03:30 05/11/24 03:30 Assessment and Plan Plan: Alcohol withdrawal with delerium Metabolic encephalopathy S/p lumbar decompression and fusion Discontinue 1:1 sitter and continue with seroquel 50 mg qhs. Continue librium 25 mg daily and will discharge pt with librium. Agitation and confusion resolved, pt is medically clear for discharge
--- NOTE | 2024-05-13 13:47 | P.DS ---
Providers Date of admission: 05/06/24 13:01 Attending physician: Marilee Dempsey Consults: 05/04/24 12:18 Consult Physician Routine Consulting Provider: Bashir Fountain Consult Reason/Comments: Medical management Do you want consulting provider notified?: Yes Primary care physician: Bashir Fountain MD Hospital Course: The patient presented on the day of admission as per their operative note. He had severe spinal stenosis with degenerative scoliosis and underwent minimally invasive decompression fusion at his lumbar spine for this. From an orthopedic standpoint he has been making adequate recovery with his pain control and mobilization and the wound status. During the course of his hospitalization however, he began having significant confusion and disorientation. He required a sitter 24 hours a day to help keep him safe. He was treated for alcohol withdrawal as per medicine appropriately. He has been making good progress with medication management and close monitoring. He continues to make improvement and remains on Librium to help control his agitation. He feels he is making progress and we have had long discussions with his family and his who feel that he is doing well 2. He is tolerating his diet adequately. He is voiding freely. He has had a bowel movement. Physical Exam He is alert he is oriented x 3 today. He will follow instructions. He still has some slowness with recollection of events and activities but he is making good improvement. He is less agitated. The incision site is clean dry and intact. There is no erythema no drainage. There is no purulence no evidence of infection. Abdomen soft and nontender. Chest has good excursion with deep inspiration and expiration. The patient has active and passive range of motion intact at the upper and lower extremities. There is no acute change in neurologic status. He has sustained dorsiflexion plantarflexion EHL intact Hospital Course Postoperative day #9 status post lumbar decompression and fusion for his spinal stenosis Alcohol withdrawal with agitation and confusion resolving appropriately the patient has been making slow progress postoperatively. They have completed the prophylactic antibiotics without any signs or symptoms of infection. The patient has been able to advance their diet, and is tolerating diet adequately. The pain was initially controlled with IV medications and is now controlled appropriately with oral medications. The patient has been able to increase their mobilization in terms of his low back. At the area is clear and he may continue to mobilize and ambulate as tolerated but should avoid any heavy work or activity. The patient's confusion and agitation is settling well. He is continuing his medication and no longer requires a sitter. We have had long discussions with his family and they feel that he is safe to bring home and they have appropriate care for him. He will continue on Librium as per his medical physician and I agree. The patient has progressed appropriately. I think they are in stable condition for discharge today. They will be sent home with appropriate prescriptions with pain medications as well as new Librium. I answered their questions to the best of my ability in a language that they can understand and they are agreeable with the plan. They will follow up as directed with our office as well as with Dr. Mosquera. Patient Condition at Discharge: Fair Plan - Discharge Summary Discharge Rx Participant: No New Discharge Prescriptions: New Sennosides-Docusate Sodium [Senokot-S] 1 tab PO BID PRN #60 tablet PRN Reason: Constipation Folic Acid 1 mg PO DAILY #30 tab Thiamine [Vitamin B-1] 100 mg PO DAILY #30 tab Baclofen 10 mg PO TID PRN #90 tab PRN Reason: Spasms HYDROcodone/APAP 7.5-325MG [Holt 7.5-325] 1 - 2 each PO Q6HR PRN #56 tab PRN Reason: Pain chlordiazePOXIDE HCl [Librium] 25 mg PO DAILY 3 Days #3 cap Continue Omeprazole [PriLOSEC] 20 mg PO DAILY Albuterol Sulfate [Proair Hfa] 2 puff INHALATION RT-Q6H PRN PRN Reason: Shortness Of Breath Dicyclomine HCl 10 mg PO TID Tiotropium 2.5 Mcg/Puff [Spiriva Respimat 2.5 Mcg] 1 puff INHALATION RT-DAILY Unk Vitamin D3 1 tab PO DAILY Clopidogrel [Plavix] 75 mg PO DAILY Sodium Chloride Tab 1 gm PO TID buPROPion SR [Wellbutrin SR] 150 mg PO BID Rosuvastatin [Crestor] 20 mg PO Q48H Losartan [Cozaar] 100 mg PO DAILY Metoprolol Succinate (ER) [Toprol XL] 50 mg PO BID Amitriptyline HCl [Elavil] 25 mg PO HS Losartan [Cozaar] 50 mg PO HS Aspirin 81 mg PO DAILY Unk Vitamin B12 1 tab PO DAILY Discharge Medication List Albuterol Sulfate [Proair Hfa] 2 puff INHALATION RT-Q6H PRN 04/15/19 [History] Omeprazole [PriLOSEC] 20 mg PO DAILY 09/29/18 [History] Amitriptyline HCl [Elavil] 25 mg PO HS 07/26/21 [History] Dicyclomine HCl 10 mg PO TID 07/26/21 [History] Losartan [Cozaar] 100 mg PO DAILY 07/26/21 [History] Metoprolol Succinate (ER) [Toprol XL] 50 mg PO BID 07/26/21 [History] Rosuvastatin [Crestor] 20 mg PO Q48H 07/26/21 [History] Tiotropium 2.5 Mcg/Puff [Spiriva Respimat 2.5 Mcg] 1 puff INHALATION RT-DAILY 07/26/21 [History] buPROPion SR [Wellbutrin SR] 150 mg PO BID 07/26/21 [History] Aspirin 81 mg PO DAILY 07/31/22 [History] Losartan [Cozaar] 50 mg PO HS 07/31/22 [History] Unk Vitamin B12 1 tab PO DAILY 07/31/22 [History] Unk Vitamin D3 1 tab PO DAILY 07/31/22 [History] Clopidogrel [Plavix] 75 mg PO DAILY 05/01/24 [History] Baclofen 10 mg PO TID PRN #90 tab 05/08/24 [Rx] HYDROcodone/APAP 7.5-325MG [Holt 7.5-325] 1 - 2 each PO Q6HR PRN #56 tab 05/08/24 [Rx] Sennosides-Docusate Sodium [Senokot-S] 1 tab PO BID PRN #60 tablet 05/08/24 [Rx] Sodium Chloride Tab 1 gm PO TID 05/09/24 [History] Folic Acid 1 mg PO DAILY #30 tab 05/13/24 [Rx] Thiamine [Vitamin B-1] 100 mg PO DAILY #30 tab 05/13/24 [Rx] chlordiazePOXIDE HCl [Librium] 25 mg PO DAILY 3 Days #3 cap 05/13/24 [Rx] Follow up Appointment(s)/Referral(s): Brendon Noel, VIET [PHYSICIAN [employer]ER] - 2 Weeks (Patient may follow-up with Brendon Noel PA-C or Dr. Des Dempsey at [facility] in 2-3 weeks following discharge. ) [facility], [NON-STAFF] - 1-2 Days (will call to set up appointment any questions please call agency) Activity/Diet/Wound Care/Special Instructions: 1. Patient may shower without Optifoam dressing intact. 2. Patient may utilize walker to aid in ambulation as needed. 3. Patient should refrain from driving until at least after their first follow- up appointment in the office. 4. Patient should avoid excessive bending, twisting, lifting; avoid overhead lifting; no lifting greater than 10 pounds. 5. Take medications as prescribed. 6. Patient should avoid anti-inflammatory medications over the next 6 weeks postoperatively. 7. Do not soak in tub. Discharge Disposition: HOME SELF-CARE
== END 2024-05-13 15:19 | disposition home or self-care (01) | DRG 426 ==
LOC: OR 05:38 → 4SSUR 12:09 → OR 05-06 13:01
PROVIDERS: ADMIT Orthopaedic Surgery Orthopaedic Surgery of the Spine; ATTEND Orthopaedic Surgery Orthopaedic Surgery of the Spine
PROC: 01NB0ZZ Release Lumbar Nerve, Open Approach (ICD-10-PCS; 2024-05-04)
PROC: 0ST20ZZ Resection of Lumbar Vertebral Disc, Open Approach (ICD-10-PCS; 2024-05-04)
PROC: 07DS0ZZ Extraction of Vertebral Bone Marrow, Open Approach (ICD-10-PCS; 2024-05-04)
PROC: 8E0WXBZ Computer Assisted Procedure of Trunk Region (ICD-10-PCS; 2024-05-04)
PROC: 0SG10AJ Fusion of 2 or more Lumbar Vertebral Joints with Interbody Fusion Device, Posterior Approach, Anterior Column, Open Approach (ICD-10-PCS; principal; 2024-05-04 07:30)
PROC: 0SG1071 Fusion of 2 or more Lumbar Vertebral Joints with Autologous Tissue Substitute, Posterior Approach, Posterior Column, Open Approach (ICD-10-PCS; 2024-05-04 07:30)
DX: M48.062 Spinal stenosis, lumbar region with neurogenic claudication (principal); G92.8 Other toxic encephalopathy; J96.01 Acute respiratory failure with hypoxia; F10.231 Alcohol dependence with withdrawal delirium; E87.1 Hypo-osmolality and hyponatremia; D62 Acute posthemorrhagic anemia; M41.56 Other secondary scoliosis, lumbar region; I10 Essential (primary) hypertension; J44.9 Chronic obstructive pulmonary disease, unspecified; M81.0 Age-related osteoporosis without current pathological fracture; M51.16 Intervertebral disc disorders with radiculopathy, lumbar region; E78.5 Hyperlipidemia, unspecified; K21.9 Gastro-esophageal reflux disease without esophagitis; G47.33 Obstructive sleep apnea (adult) (pediatric); M47.26 Other spondylosis with radiculopathy, lumbar region; E83.42 Hypomagnesemia; F41.9 Anxiety disorder, unspecified; Z87.891 Personal history of nicotine dependence; Z86.718 Personal history of other venous thrombosis and embolism; Z79.02 Long term (current) use of antithrombotics/antiplatelets; Z79.82 Long term (current) use of aspirin; Z79.899 Other long term (current) drug therapy
CPT/HCPCS: 71045; 72100; 80048; 80076; 81003; 83036; 83735; 83930; 83935; 84300; 85025; 85027; 86850; 86891; 86900; 86901; 94640; 94760